=== PATIENT | female | born 1995 | race Caucasian/White ===

== ENCOUNTER 2017-11-25 17:23 | Emergency (ER) | payer BC, OTHER ==
[~2017-11-25] VITALS: Ht 157.5 cm; Wt 74.8 kg
[~2017-11-25 17:23] MED LIST: OMEP40CA PO; SERT-234 PO
[2017-11-25 17:40] VITALS: TEMP 36.6; Ht 157.5 cm; Wt 74.8 kg
[2017-11-25] MEDS ORDERED: LAMO1TAB21 PO (18:38)
[2017-11-25] MEDS ORDERED: LMC25 PO (18:38)
[2017-11-25] MEDS ORDERED: ZLF/100 PO (18:38)
[2017-11-25] MEDS ORDERED: ATR25 PO (18:38)
[2017-11-25] MEDS ORDERED: ALBUTEROL HFA 8 GM INHALER INH ONE (18:45)
[2017-11-25 19:33] LABS: INFLUENZA B ANTIGEN Neg for Influ B (NEG)
--- NOTE | 2017-11-25 19:45 | DIAGNOSTIC IMAGING REPORT ---
CHEST 2 VIEWS ROUTINE HISTORY: Coughing. COMPARISON: Chest 05/24/2013. FINDINGS: The lungs are clear. Cardiac silhouette is normal in size. No pleural effusions. No pneumothorax. IMPRESSION: No acute process. Electronically signed by: Tam Bhandari M.D. 11/25/2017 7:44 PM Dictated Date/Time: 11/25/2017 7:41 PM
[2017-11-25 20:10] VITALS: BP 112/70; PULSE 80; O2SAT 100
[2017-11-25] MEDS ORDERED: BCPILLS PO (22:09)
--- NOTE | 2017-11-26 00:01 | EMERGENCY ROOM VISIT NOTE ---
History Report prepared by Neo: Eric Britt Under the Supervision of: Dr. Hieu Donaldson M.D. First contact with patient: 18:30 Chief Complaint: COUGH Stated Complaint: COUGHING,PAIN,FEVER History of Present Illness The patient is a 22 year old female who presents to the Emergency Room with complaints of constant flu-like symptoms since November 23, 2017. She states that she has been coughing to the point of dry heaving, though has not vomited. She reports congestion and coughing up yellow mucus. She notes a fever of 101 yesterday. She reports body aches and has taken Ibuprofen. She currently rates her pain a 6/10 in severity. She notes mild shortness of breath. Source of History: patient Onset: November 23, 2017 Position: other (global) Symptom Intensity: 6/10 Quality: other (flu-like symptoms) Timing: constant Associated Symptoms: + fevers, + cough (with yellow mucus), + SOB (mild), No vomiting Note: She notes body aches, dry heaving, and congestion. Review of Systems See HPI for pertinent positives & negatives. A total of 10 systems reviewed and were otherwise negative. Past Medical & Surgical Medical Problems: (1) Cholecystectomy (2) chronic vomiting (3) Depression (4) Gastroesophageal reflux disease Family History Cancer Diabetes mellitus FHx: gallbladder disease Heart disease Hypertension Social History Smoking Status: Current Every Day Smoker (1/2 pack a day) Alcohol Use: none Drug Use: heroin Marital Status: single Housing Status: lives with family Occupation Status: student Current/Historical Medications Scheduled Control Pills ( Control Pills), 1 TAB PO HS Lamotrigine (Lamotrigine), 75 MG PO HS Lamotrigine (Lamotrigine), 100 MG PO HS Sertraline HCl (Sertraline HCl), 200 MG PO HS Scheduled PRN Hydroxyzine HCl (Hydroxyzine HCl), 25 MG PO BID PRN for Anxiety Allergies Coded Allergies: No Known Allergies (Unverified , NONE, 11/21/15) Physical Exam Vital Signs Date Time Temp Pulse Resp B/P (MAP) Pulse Ox O2 Delivery O2 Flow Rate FiO2 11/25/17 20:10 80 18 112/70 100 11/25/17 18:59 98 Room Air 11/25/17 18:58 72 18 112/56 98 Room Air 11/25/17 17:40 36.6 111 18 104/76 100 Room Air Physical Exam Constitutional: Vital signs reviewed. Eyes: Pupils are equal round reactive to light. Conjunctiva are noninjected. ENT: Pharynx is clear without erythema or exudate. Mucous membranes are moist. Neck supple without meningeal signs. Respiratory: Clear to auscultation bilaterally. Breath sounds are equal bilaterally. Cardiovascular: Regular rate and rhythm. No rubs or gallops. GI: Soft, nondistended and nontender. Bowel sounds are present. Musculoskeletal: No peripheral edema. No lower extremity tenderness. Integumentary: No cyanosis. Neurological: The patient is awake and alert. No focal deficits. Psychiatric: Normal affect. Medical Decision & Procedures ER Provider Diagnostic Interpretation: Radiology results as stated below per my review and the radiologist's interpretation: CHEST 2 VIEWS ROUTINE HISTORY: Coughing. COMPARISON: Chest 05/24/2013. FINDINGS: The lungs are clear. Cardiac silhouette is normal in size. No pleural effusions. No pneumothorax. IMPRESSION: No acute process. Electronically signed by: Tam Bhandari M.D. 11/25/2017 7:44 PM Dictated Date/Time: 11/25/2017 7:41 PM Laboratory Results Test 11/25/17 18:33 11/25/17 19:00 Bedside Urine Test NEG (NEG) Influenza Type A Antigen POS for Influ A (NEG) Influenza Type B Antigen Neg for Influ B (NEG) Laboratory results as reviewed by me. Medications Administered Medications (Trade) Dose Ordered Sig/Aide Route Start Time Stop Time Status Last Admin Dose Admin Albuterol (Ventolin Hfa Inhaler) 2 puffs NOW ONCE INH 11/25/17 18:45 11/25/17 18:46 DC 11/25/17 19:01 2 PUFFS ED Course 1838: The patient was evaluated in room B3B. A complete history and physical exam was performed. 184: Ordered Albuterol 2 puffs INH 1950: I reassessed the patient at this time. She is feeling better and resting comfortably. I discussed the results, risks and benefits of Tamiflu with the patient. She declined treatment. I answered all pertaining questions that she had. She expressed understanding and verbalized agreement. The patient will be discharged home. Medical Decision This is a 22-year-old female presents with flulike symptoms. Differential diagnosis: Includes influenza, pneumonia, bronchitis, URI. I did perform a limited focused review of portions of the patient's old chart on the electronic medical record. The patient has had no recent pertinent visits to this hospital. I did evaluate the patient as noted above. Urine present test is negative. I did order and personally review the patient's chest x-ray as described above. There is no evidence of pneumonia. I did order a rapid flu test was positive for influenza A. I did discuss the test results with the patient. She was advised follow with her doctor. She was given return instructions as outlined below and discharged in good condition. Medication Reconcilliation Current Medication List: was personally reviewed by me Blood Pressure Screening Patient's blood pressure: Normal blood pressure Impression Primary Impression: Influenza A Scribe Attestation The scribe's documentation has been prepared under my direct and personally reviewed by me in its entirety. I confirm that the note above accurately reflects all work, treatment, procedures, and medical decision making performed by me. Departure Information Dispostion Home / Self-Care Referrals Koby Aguirre M.D. (MEDICAL) (PCP) Forms HOME CARE DOCUMENTATION FORM, IMPORTANT VISIT INFORMATION, School Instructions Patient Instructions ED Flu, My [facility] Additional Instructions You have been examined and treated today on an emergency basis only. This is not a substitute for, or an effort to provide, complete comprehensive medical care. It is impossible to recognize and treat all injuries or illnesses in a single emergency department visit. It is therefore important that you follow up closely with your physician. Call as soon as possible for an appointment. Return for worsening symptoms or if you develop chest pain, trouble breathing, vomiting, or any other concerning symptoms.
== END 2017-11-25 20:11 | disposition home or self-care (01) ==
LOC: C.EDB 17:23
DX: J11.1 Influenza due to unidentified influenza virus with other respiratory manifestations (principal); F32.9 Major depressive disorder, single episode, unspecified; F17.200 Nicotine dependence, unspecified, uncomplicated; Z90.49 Acquired absence of other specified parts of digestive tract; Z83.3 Family history of diabetes mellitus; Z82.49 Family history of ischemic heart disease and other diseases of the circulatory system; Z79.899 Other long term (current) drug therapy

== ENCOUNTER 2020-11-10 20:02 | Observation (INO) ==
[2020-11-10] MEDS ORDERED: ONDANSETRON INJ 2 MG/ML 2 ML VIAL IV STA (20:32)
[2020-11-10] MEDS ORDERED: SODIUM CHLORIDE 0.9% 1000ML 1,000 ML IV SCH (20:32)
--- NOTE | 2020-11-10 20:36 | Emergency Department Note ---
History of Present Illness General Chief complaint: Vomiting Stated complaint: vomit, Dehydration, Nausea Time Seen by Provider: 11/10/20 20:11 History of Present Illness Maximum Pain Intensity: 0 Patient is a 10-week 25-year-old female who presents the emergency department for evaluation of persistent nausea and vomiting. She was seen and evaluated here earlier today, and was discharged from our facility roughly 2 hours prior to her return this evening at 1999. Patient states that she felt fine when she left the emergency department. She had tolerated crackers and fluids in the ED prior to discharge. She states that she did stop and get Pepcid on her way home, and took 1 dose. She states that when she got home, she "started vomiting again." She tried taking Reglan but vomited it up. She returned to the emergency department as she was told that if her symptoms did not improve she would need to be admitted. She states that "they have been trying to admit me since Sunday." The patient has a history of GERD as a child. She is status post cholecystectomy at age 15. Remote history of an EGD. She denies any other underlying stomach problems or IBS. She has multiple antiemetics at home including Reglan, Zofran and Phenergan suppositories. She did have an ultrasound which confirmed an intrauterine on her ED visit on 11/06. She follows with [facility]. Home Medications Medication Instructions Recorded Confirmed Type omeprazole 20 mg PO DAILY 11/06/20 11/10/20 History ondansetron 4 mg PO Q8H PRN 11/06/20 11/10/20 History prenat.vits,kannan,qvd-syfr-toltz 1 tab PO DAILY 11/06/20 11/10/20 History [ #2] doxylamine-pyridoxine (vit B6) 1 tab PO Q8H 11/10/20 11/10/20 History famotidine 20 mg PO BID #20 tab 11/10/20 11/10/20 Rx metoclopramide HCl 10 mg PO Q6H PRN 11/10/20 11/10/20 History promethazine 25 mg AK Q6H PRN 11/10/20 11/10/20 History Allergies Allergy/AdvReac Type Severity Reaction Status Date / Time No Known Allergies Allergy Verified 11/10/20 20:46 Past Med/Surg History Medical History GERD (gastroesophageal reflux disease) As a child Surgical History History of cholecystectomy History of esophagogastroduodenoscopy (EGD) Family History (Updated 12/28/19 @ 16:11 by Yosvany Glasgow) Other No significant family history Social History Smoking Status: Former smoker Preferred Language: [place] Citizen current occupational status: employed and student Feels Safe at Home: Yes Review of Systems A total of 10 systems reviewed and were otherwise negative Physical Exam Vital Signs Vital Signs - 24 hr 11/10/20 20:05 11/10/20 21:20 11/10/20 21:58 Temperature 36.6 C Temperature Source Temporal Artery Scan Pulse Rate 83 Pulse Rate [Finger] 82 83 Respiratory Rate 16 18 18 Respiratory Depth Normal Blood Pressure 124/73 Blood Pressure [Right Arm] 113/69 123/78 Blood Pressure Mean 90 Blood Pressure Mean [Right Arm] 83 93 Blood Pressure Position Sitting Pulse Oximetry 96 98 98 Oxygen Delivery Method Room Air Room Air Room Air Sepsis Recent Fever Within 48 Hours No Sepsis New/Unexplained Change in Mental Status No Sepsis Action Taken by Nursing No Action Required CONSTITUTIONAL: Patient is an ill-appearing 25-year-old female who is awake and alert and in no acute distress. EYES: Pupils equal, round, reactive to light and accommodation. EOMs intact without nystagmus. Sclera are anicteric. ENT: Tympanic membranes intact, with normal landmarks. External canals are clear. Oral and nasopharynx are clear. Mucous membranes are dry, no lesions, tongue and gums appear normal. CARDIOVASCULAR: Regular rate and rhythm, with normal S1 and S2, no murmur or gallop or rub is heard. No carotid bruits auscultated. No JVD. Peripheral pulses easily palpable. RESPIRATORY: Breath sounds equal and clear to auscultation without wheezes, rales, or rhonchi heard. Full and equal chest expansion without accessory muscle use or retractions. ABDOMEN: Bowel sounds are present. Well-healed surgical scars are noted. Abdomen is soft, nondistended, mildly tender to palpation through the upper abdomen, without guarding or rebound. INTEGUMENTARY: No lesions or rash, normal skin turgor. LYMPH: No lymphadenopathy. Course Course The patient was seen and assessed as above. Old records were reviewed including her ED record from this weekend and earlier today. She returns to the emergency department for intractable nausea and vomiting in the setting of a first trimester . She is requesting admission. IV lock was initiated and repeat laboratory studies were collected. She was hy drated with normal saline solution and medicated with Zofran 4 mg IV. Consultation was placed with [facility] on-call. Patient was reviewed with Dr. Yung. He was agreeable to admission/observation. Please refer to his orders for further information. Laboratory studies in the emergency department noted a 14,000 white count. Electrolytes are without significant abnormality requiring correction. BUN 2, creatinine 0.47. Transaminases are normal. Lipase is within normal limits. A Covid test obtained for admission purposes was negative. Patient was made aware that she would be brought into the hospital by the [facility] service for further care and treatment. Administered Medications Discontinued Medications Sodium Chloride (Nss 1000ml) 1,000 mls @ 999 mls/hr IV .Q1H1M DAYANARA Stop: 11/10/20 21:32 Last Infusion: 11/10/20 21:38 Dose: 0 mls/hr Documented by: [id number] Admin: 11/10/20 20:44 Dose: 999 mls/hr Documented by: [id number] Lactated Ringer's (Lr) 500 mls @ 999 mls/hr IV .Q31M ONE Stop: 11/10/20 21:45 Last Infusion: 11/10/20 22:10 Dose: 0 mls/hr Documented by: [id number] Admin: 11/10/20 21:39 Dose: 999 mls/hr Documented by: [id number] Ondansetron HCl (Ondansetron Inj 2 Mg/Ml 2 Ml Vial) 4 mg IV NOW STA Stop: 11/10/20 20:33 Last Admin: 11/10/20 20:44 Dose: 4 mg Documented by: [id number] Medical Decision Making Differential Diagnosis Differential diagnoses entertained included first trimester nausea and vomiting, hyperemesis gravidarum, GERD, gastritis, esophagitis, peptic ulcer disease, dehydration, electrolyte or metabolic abnormality, among others. Medical Records Attestation: I reviewed the patient's medical records. Home Medications Current Medication List: was personally reviewed by me Laboratory Data Attestation: I reviewed the patient's lab results. Result diagrams: 11/10/20 20:32 11/10/20 20:39 Lab Results 11/10/20 11/10/20 11/10/20 Range/Units 20:32 20:39 21:18 WBC 14.01 H (4.8-10.8) K/uL RBC 4.30 (4.2-5.4) M/uL Hgb 12.8 (12.0-16.0) g/dL Hct 37.7 (37-47) % MCV 87.7 (80-100) fL MCH 29.8 (25-34) pg MCHC 34.0 (32-36) g/dL RDW Std Deviation 44.9 (36.4-46.3) fL RDW Coeff of Reji 14.0 (11.5-14.5) % Plt Count 258 (130-400) K/uL MPV 10.3 (7.4-10.4) fL Sodium 140 (136-145) mmol/L Potassium 3.7 (3.5-5.1) mmol/L Chloride 109 H (98-107) mmol/L Carbon Dioxide 24 (21-32) mmol/L Anion Gap 6.0 (3-11) BUN 2 L (7-18) mg/dl Creatinine 0.47 L (0.6-1.2) mg/dl Est Cr Clr Drug Dosing 166.1 ml/min Est GFR ( Amer) > 150.0 Est GFR (Non-Af Amer) 136.3 BUN/Creatinine Ratio 4.4 L (10-20) Glucose 87 (70-99) mg/dl Calcium 9.0 (8.5-10.1) mg/dl Magnesium 1.8 (1.8-2.4) mg/dl Total Bilirubin 0.6 (0.2-1) mg/dl AST 20 (15-37) U/L ALT 28 (12-78) U/L Alkaline Phosphatase 50 (45-117) U/L Total Protein 6.7 (6.4-8.2) gm/dl Albumin 3.3 L (3.4-5.0) gm/dl Globulin 3.4 (2.5-4.0) gm/dl Albumin/Globulin Ratio 1.0 (0.9-2) Lipase 365 (73-393) U/L COVID-19 Eval Order Covid19 IDNow [facility] MDM Narrative See ED course. Impression & Plan Hyperemesis gravidarum Discharge Plan Visit Data Chief Complaint: Vomiting Stated Complaint: vomit, Dehydration, Nausea ED Provider: Colton Call ED Midlevel Provider: Megha Sierra Discharge Problem: Hyperemesis gravidarum Patient Disposition: Admitted As Inpatient Forms Stand Alone Forms: [facility] Prescriptions Prescriptions: No Action omeprazole 20 mg capsule,delayed release(DR/EC) 20 mg PO DAILY RF: 0 ondansetron 4 mg tablet,disintegrating 4 mg PO Q8H PRN (Reason: Nausea) RF: 0 #2 Tablet 1 tab PO DAILY RF: 0 promethazine 25 mg suppository 25 mg AK Q6H PRN (Reason: Nausea) RF: 0 metoclopramide HCl 10 mg tablet 10 mg PO Q6H PRN (Reason: Gi Upset) RF: 0 doxylamine-pyridoxine (vit B6) 10-10 mg tablet,delayed release (DR/EC) 1 tab PO Q8H RF: 0 famotidine 20 mg tablet 20 mg PO BID Qty: 20 RF: 0 Referrals Referrals: Bo Yo MD [Primary Care Provider] -
[2020-11-10 20:51] LABS: Hematocrit (blood only) 37.7 % (37-47); Hemoglobin 12.8 g/dL (12.0-16.0); Mean Corpuscular Hemoglobin 29.8 pg (25-34); Mean Corpuscular Volume 87.7 fL (80-100); Mean Platelet Volume 10.3 fL (7.4-10.4); Platelet Count 258 K/uL (130-400); RDW Standard Deviation 44.9 fL (36.4-46.3); White Blood Count 14.01 K/uL (4.8-10.8)
[2020-11-10 21:13] LABS: Alanine Aminotransferase 28 U/L (12-78); Albumin Level 3.3 gm/dl (3.4-5.0); Aspartate Aminotransferase 20 U/L (15-37); BUN Creatinine Ratio 4.4 (10-20); Blood Urea Nitrogen 2 mg/dl (7-18); Carbon Dioxide 24 mmol/L (21-32); Chloride 109 mmol/L (98-107); Creatinine Clr Calc Pharmacy 166.1 ml/min; Est GFR (African American) > 150.0; Est GFR (Non-African American) 136.3; Glucose 87 mg/dl (70-99); Lipase 365 U/L (73-393); Magnesium 1.8 mg/dl (1.8-2.4); Potassium 3.7 mmol/L (3.5-5.1); Sodium 140 mmol/L (136-145)
[2020-11-10] MEDS ORDERED: LACTATED RINGER'S 500 ML IV ONE (21:15)
[2020-11-10 21:16] LABS: Alkaline Phosphatase 50 U/L (45-117); Bilirubin,Total 0.6 mg/dl (0.2-1); Globulin 3.4 gm/dl (2.5-4.0); Total Protein 6.7 gm/dl (6.4-8.2)
[2020-11-10] MEDS: POTASSIUM CHLORIDE 30 MEQ in LACTATED RINGER'S 1,000 ML IV SCH (22:13)
[2020-11-11] MEDS: ONDANSETRON INJ 2 MG/ML 2 ML VIAL IV PRN ×2 (04:21→10:08)
[2020-11-11] MEDS: POTASSIUM CHLORIDE 30 MEQ in LACTATED RINGER'S 1,000 ML IV SCH (05:20)
--- NOTE | 2020-11-11 07:56 | History & Physical Report ---
Date of Service November 11, 2020 Assessment & Plan (1) Hyperemesis gravidarum: 25-year-old G1, P0 at 10 wks of gestation who was admitted last night for N&V of and keton in urine VSS Afebrile Doing well No N&V since last night, desires to eat and drink Continue with clear diet and then BRAT and reevaluate Admission and Anticipated Discharge Date Admission Date: November 10, 2020 History of Present Illness Primary Care Provider: Bo Yo MD Patient is a 25-year-old G1 and 10 weeks of gestation who was admitted by Dr Yung for hyperemesis last night She was not keeping anything down and came to ER for the second time She has not had N&V since admission and wants to eat clear diet No VB/ Cramping Voided 45 ml clear urine per nursing team Per her she has not lost any weight She is know to me from office. Allergies Allergy/AdvReac Type Severity Reaction Status Date / Time No Known Allergies Allergy Verified 11/10/20 20:46 Home Medications Medication Instructions Recorded Confirmed Type omeprazole 20 mg PO DAILY 11/06/20 11/10/20 History ondansetron 4 mg PO Q8H PRN 11/06/20 11/10/20 History prenat.vits,kannan,rve-wpdy-lpszx 1 tab PO DAILY 11/06/20 11/10/20 History [ #2] doxylamine-pyridoxine (vit B6) 1 tab PO Q8H 11/10/20 11/10/20 History famotidine 20 mg PO BID #20 tab 11/10/20 11/10/20 Rx metoclopramide HCl 10 mg PO Q6H PRN 11/10/20 11/10/20 History promethazine 25 mg TN Q6H PRN 11/10/20 11/10/20 History Patient History Medical History GERD (gastroesophageal reflux disease) As a child Surgical History History of cholecystectomy History of esophagogastroduodenoscopy (EGD) Family History Other No significant family history Social History Smoking Status: Former smoker Smoking End Date: August 2020; Second Hand Exposure: No; Do You Dip or Chew Tobacco: No; Tobacco Cessation Education Requested by Patient: No Hx Alcohol Use: No Hx Substance Use: Yes Last Used Substance: Hours (ago) Substance Use Type Other:: [facility] Preferred Language: [place] Communication Ability: Effective Logistics Clerk Required: No Beliefs That Will Affect Care: None Current Living Situation: Significant Other current occupational status: employed and student Other Information That Helps Us Care for You: No Feels Safe at Home: Yes Safety Concerns: Feels Safe At This Time Assistive Devices: Contacts Review of Systems All systems reviewed & are unremarkable except as noted in HPI & below Physical Exam Constitutional: WD/WN, vitals as above well developed, well nourished and + well hydrated Results & Data ([facility]) Vital Signs (Past 12 Hours) Vital Signs Temp Pulse Pulse Pulse Resp BP BP 11/11/20 04:20 36.7 C 78 18 119/70 11/10/20 23:00 36.8 C 87 18 120/68 11/10/20 21:58 83 18 123/78 11/10/20 21:20 82 18 113/69 11/10/20 20:05 36.6 C 83 16 124/73 Pulse Ox 11/11/20 04:20 98 11/10/20 23:00 96 11/10/20 21:58 98 11/10/20 21:20 98 11/10/20 20:05 96 Laboratory Results Lab Results 11/10/20 11/10/20 11/10/20 Range/Units 20:32 20:39 21:18 WBC 14.01 H (4.8-10.8) K/uL RBC 4.30 (4.2-5.4) M/uL Hgb 12.8 (12.0-16.0) g/dL Hct 37.7 (37-47) % MCV 87.7 (80-100) fL MCH 29.8 (25-34) pg MCHC 34.0 (32-36) g/dL RDW Std Deviation 44.9 (36.4-46.3) fL RDW Coeff of Reji 14.0 (11.5-14.5) % Plt Count 258 (130-400) K/uL MPV 10.3 (7.4-10.4) fL Sodium 140 (136-145) mmol/L Potassium 3.7 (3.5-5.1) mmol/L Chloride 109 H (98-107) mmol/L Carbon Dioxide 24 (21-32) mmol/L Anion Gap 6.0 (3-11) BUN 2 L (7-18) mg/dl Creatinine 0.47 L (0.6-1.2) mg/dl Est Cr Clr Drug Dosing 166.1 ml/min Est GFR ( Amer) > 150.0 Est GFR (Non-Af Amer) 136.3 BUN/Creatinine Ratio 4.4 L (10-20) Glucose 87 (70-99) mg/dl Calcium 9.0 (8.5-10.1) mg/dl Magnesium 1.8 (1.8-2.4) mg/dl Total Bilirubin 0.6 (0.2-1) mg/dl AST 20 (15-37) U/L ALT 28 (12-78) U/L Alkaline Phosphatase 50 (45-117) U/L Total Protein 6.7 (6.4-8.2) gm/dl Albumin 3.3 L (3.4-5.0) gm/dl Globulin 3.4 (2.5-4.0) gm/dl Albumin/Globulin Ratio 1.0 (0.9-2) Lipase 365 (73-393) U/L COVID-19 Eval Order Covid19 IDNow [facility] SARS-CoV-2, RNA, NAAT (NEGATIVE) 11/10/20 Range/Units 21:18 WBC (4.8-10.8) K/uL RBC (4.2-5.4) M/uL Hgb (12.0-16.0) g/dL Hct (37-47) % MCV (80-100) fL MCH (25-34) pg MCHC (32-36) g/dL RDW Std Deviation (36.4-46.3) fL RDW Coeff of Reji (11.5-14.5) % Plt Count (130-400) K/uL MPV (7.4-10.4) fL Sodium (136-145) mmol/L Potassium (3.5-5.1) mmol/L Chloride (98-107) mmol/L Carbon Dioxide (21-32) mmol/L Anion Gap (3-11) BUN (7-18) mg/dl Creatinine (0.6-1.2) mg/dl Est Cr Clr Drug Dosing ml/min Est GFR ( Amer) Est GFR (Non-Af Amer) BUN/Creatinine Ratio (10-20) Glucose (70-99) mg/dl Calcium (8.5-10.1) mg/dl Magnesium (1.8-2.4) mg/dl Total Bilirubin (0.2-1) mg/dl AST (15-37) U/L ALT (12-78) U/L Alkaline Phosphatase (45-117) U/L Total Protein (6.4-8.2) gm/dl Albumin (3.4-5.0) gm/dl Globulin (2.5-4.0) gm/dl Albumin/Globulin Ratio (0.9-2) Lipase (73-393) U/L COVID-19 Eval Order SARS-CoV-2, RNA, NAAT NEGATIVE (NEGATIVE)
[2020-11-11] MEDS ORDERED: METOCLOPRAMIDE HCL INJ 5 MG/ML 2 ML VIAL IV PRN (07:59)
--- NOTE | 2020-11-11 14:35 | Obstetrical Progress Note ---
Date of Service November 11, 2020 Assessment & Plan Admission and Anticipated Discharge Date Admission Date: November 10, 2020 Subjective Patient is reevaluated She feels better and wants to be discharged No vomiting since admission She ate lunch and kept it down Discussed US results: small DAYANARA, recommended f/u US in 2 weeks She desires Rx for Zofran only. All questions were answered Results & Data ([facility]) Vital Signs (Past 12 Hours) Vital Signs Temp Pulse Resp BP Pulse Ox 11/11/20 07:35 36.7 C 76 18 114/72 100 11/11/20 04:20 36.7 C 78 18 119/70 98
== END 2020-11-11 15:00 | disposition home or self-care (01) ==
LOC: ED 20:02 → 4S2 20:02

== ENCOUNTER 2020-12-13 05:52 | Observation (INO) ==
[2020-12-13 06:29] LABS: Basophils # (auto) 0.02 K/uL (0-0.2); Basophils % (auto) 0.1 %; Eosinophils # (auto) 0.03 K/uL (0-0.5); Eosinophils % (auto) 0.2 %; Hemoglobin 13.1 g/dL (12.0-16.0); Immature Granulocytes # (auto) 0.04 K/uL (0.00-0.02); Immature Granulocytes % (auto) 0.3 %; Lymphocytes # (auto) 2.46 K/uL (1.2-3.4); Lymphocytes % (auto) 16.7 %; Mean Corpuscular Hemoglobin 30.2 pg (25-34); Mean Corpuscular Hgb Conc 35.4 g/dL (32-36); Mean Corpuscular Volume 85.3 fL (80-100); Mean Platelet Volume 10.6 fL (7.4-10.4); Monocytes # (auto) 0.87 K/uL (0.11-0.59); Monocytes % (auto) 5.9 %; Neutrophils # (auto) 11.29 K/uL (1.4-6.5); Neutrophils % (auto) 76.8 %; Platelet Count 307 K/uL (130-400); RDW Coefficient of Variation 13.7 % (11.5-14.5); RDW Standard Deviation 42.8 fL (36.4-46.3); Red Blood Count 4.34 M/uL (4.2-5.4); White Blood Count 14.71 K/uL (4.8-10.8)
[2020-12-13] MEDS ORDERED: diphenhydrAMINE 50 MG/ML VIAL IV STA ×2 (06:39→13:06)
[2020-12-13] MEDS ORDERED: CAPSAICIN CR 0.075% 60 GM TUBE EXT STA (06:39)
[2020-12-13] MEDS ORDERED: METOCLOPRAMIDE HCL INJ 5 MG/ML 2 ML VIAL IV STA (06:39)
[2020-12-13] MEDS ORDERED: D5W AND NSS 1,000 ML IV STA ×2 (06:40→09:42)
[2020-12-13] MEDS ORDERED: FAMOTIDINE 20MG IV PUSH 20 MG/5 ML SYR IV STA (06:41)
[2020-12-13 06:46] LABS: Albumin Level 3.3 gm/dl (3.4-5.0); BUN Creatinine Ratio 7.8 (10-20); Calcium 8.9 mg/dl (8.5-10.1); Creatinine Clr Calc Pharmacy 127.6 ml/min; Est GFR (African American) 144.2; Est GFR (Non-African American) 124.4; Potassium 3.2 mmol/L (3.5-5.1)
[2020-12-13 06:48] LABS: Albumin Globulin Ratio 0.9 (0.9-2); Bilirubin,Total 0.7 mg/dl (0.2-1); Globulin 3.8 gm/dl (2.5-4.0); Total Protein 7.1 gm/dl (6.4-8.2)
--- NOTE | 2020-12-13 07:28 | Emergency Department Note ---
Impression & Plan Metabolic acidosis, Hyperemesis affecting , antepartum, Acute dehydration, Cannabis hyperemesis syndrome concurrent with and due to cannabis dependence ED Provider Note NAME: ISAURA JOSEPH AGE: 25 SEX: F ARRIVES VIA: Walk-In INFORMANT: Patient, ED PROVIDER(S): Leighton Lucero MD CHIEF COMPLAINT: Nausea/vomiting PLAN: Disposition: Admit MEDICAL DECISION MAKING: The patient is a pleasant 25-year-old woman, G1, P0 at 16 weeks past medical history acid reflux, regular medical marijuana use who presents to the emergency department with persistent nausea vomiting and epigastric abdominal pain since yesterday in the setting of having numerous emergency department visits for the same throughout this . On prior visits there was noted to be stable subchorionic hemorrhage on ultrasound. Today she denies any vaginal bleeding, cramping, discharge. She denies any fevers, chills, cough, congestion, diarrhea, urinary symptoms. She denies any known COVID-19 exposures. Of note on previous ED visit she was given capsaicin cream but she appeared to not know what this was and did not use this. Patient last ED visit was 11/27 and since then she reports she has been doing okay but had recurrence of her symptoms yesterday. On arrival she is uncomfortable no acute distress, afebrile stable vital signs. She has mild epigastric discomfort without discrete tenderness. She appears clinically dry. WBC 14.7, nonspecific and similar to prior range of values and in the setting of the patient's current and cyclic vomiting. H/H and platelets within normal limits. Chemistry with mild metabolic acidosis with bicarbonate of 17 though with no significant anion gap elevation. Potassium 3.2 with repletion provided. Electrolytes and LFTs otherwise without significant abnormality. Lipase is marginally elevated at 439 and nonspecific. The patient initially had some improvement with initial treatment including IVF hydration with D5NSS, topical capsaicin, diphenhydramine, Reglan, famotidine. However symptoms did recur and so she was additionally treated with Phenergan and GI cocktail. She again reports some improvement and even requested Jell-O however before she was able to even attempt this she had a recurrence of her cyclical vomiting. On reevaluation the patient continued with generalized abdominal discomfort but no discrete tenderness. A limited bedside abdominal ultrasound was performed and did not demonstrate any overt free fluid. The patient's known IUP was appreciated with HR appreciated. Given the patient's persistence of symptoms after repeated treatment we did consider alternate etiology including appendicitis. However given no discrete tenderness will defer imaging at this time. However given her refractory symptoms it is reasonable to admit the patient for further management and monitoring. Patient was agreeable with this. I did discuss the patient's case with Tasneem HUYNH on-call, Dr. Ward, who is familiar with the patient from her last admission. She agrees to evaluate the patient and admit for further management. Of note, and then met in the interim the patient did request her nurse to reapply the capsaicin ointment as she reported improvement initially and ointment may have been wiped off by her pants. Triage Nursing notes reviewed and agree them. Prior medical records reviewed Vital Signs: reviewed and remarkable for no significant abnormalities Differential diagnosis: Gastroenteritis, food borne illness, infections, appendicitis, diverticulitis, inflammatory bowel disease, obstruction, GI bleed, biliary pathology, volvulus, as well as other pathologies. ER treatment provided: See below. Diagnostics interpreted by me: Cardiac Monitoring: An order for continuous cardiac monitoring was placed and demonstrated NSR, 89 bpm, no ectopy Laboratory studies: See below Consultation(s): Tasneem HUYNH on-call, Dr. Ward, HPI: The patient is a pleasant 25-year-old woman, G1, P0 at 16 weeks past medical history acid reflux, regular marijuana use who presents emerge department with persistent nausea vomiting and epigastric abdominal pain since yesterday in the setting of having numerous emergency department visits for the same throughout this . On prior visits there was noted to be stable subchorionic hemorrhage on ultrasound. Today she denies any vaginal bleeding, cramping, discharge. Any fevers, chills, cough, congestion, diarrhea, urinary symptoms. She denies any known COVID-19 exposures. Of note on previous ED visit she was given capsaicin cream but she appeared to not know what this was and did not use this. ROS: See above HPI for pertinent positives & negatives. A total of 10 systems reviewed and were otherwise negative. PAST MEDICAL HISTORY:See Below PAST SURGICAL HISTORY:See Below FAMILY HISTORY:See Below SOCIAL HISTORY:See Below HOME MEDICATIONS:See Below ALLERGIES:See Below VITALS:See Below PHYSICAL EXAMINATION: GENERAL: Awake, alert, fatigued/uncomfortable-appearing, in no distress HENT: Normocephalic, atraumatic. Oropharynx with dry mucous membranes and otherwise unremarkable. EYES: Normal conjunctiva. Sclera non-icteric. NECK: Supple. No nuchal rigidity. FROM. No JVD. RESPIRATORY: Clear to auscultation. CARDIAC: Regular rate, normal rhythm. Extremities warm and well perfused. Pulses equal. ABDOMEN: Soft, non-distended. Mild epigastric discomfort without discrete tenderness to palpation. No rebound or guarding. No masses. RECTAL: Deferred. MUSCULOSKELETAL: Chest examination reveals no tenderness. The back is symmetrica l on inspection without obvious abnormality. There is no CVA tenderness to palpation. No joint edema. LOWER EXTREMITIES: Calves are equal size bilaterally and non-tender. No edema. No discoloration. NEURO: Normal sensorium. No sensory or motor deficits noted. SKIN: No rash or jaundice noted. Leighton Lucero MD Past Med/Surg History Medical History Cannabis hyperemesis syndrome concurrent with and due to cannabis dependence GERD (gastroesophageal reflux disease) As a child Hyperemesis affecting , antepartum Marijuana use Surgical History History of cholecystectomy History of esophagogastroduodenoscopy (EGD) Family History Other No significant family history Social History Smoking Status: Never smoker Second Hand Exposure: No; Hx Alcohol Use: No Hx Substance Use: Yes Last Used Substance: Hours (ago) Substance Use Type Other:: [facility] Preferred Language: Turkish Communication Ability: Effective Leaf Conditioner Required: No Beliefs That Will Affect Care: None Current Living Situation: Significant Other current occupational status: employed and student Feels Safe at Home: Yes Assistive Devices: None Allergies Allergies Allergy/AdvReac Type Severity Reaction Status Date / Time No Known Allergies Allergy Verified 12/13/20 06:03 Home Meds Home Medications Medication Instructions Recorded Confirmed omeprazole 20 mg PO DAILY 11/06/20 12/13/20 prenat.vits,kannan,odi-ksjv-csrlm 1 tab PO DAILY 11/06/20 12/13/20 doxylamine-pyridoxine (vit B6) 1 tab PO Q8H 11/10/20 12/13/20 metoclopramide HCl 10 mg PO Q6H PRN 11/10/20 12/13/20 promethazine 25 mg ME Q6H PRN 11/10/20 12/13/20 Previous Rx's Medication Instructions Recorded famotidine 20 mg PO BID #20 tab 11/10/20 ondansetron 4 mg PO Q4 PRN #30 tab 11/11/20 Results & Data (ED) Vital Signs Vital Signs - 24 hr 12/13/20 05:58 12/13/20 08:44 12/13/20 10:01 Temperature 36.3 C L Temperature Source Temporal Artery Scan Pulse Rate 98 H Pulse Rate [Right Finger] 88 77 Pulse Rhythm Regular Pulse Rhythm [Right Finger] Regular Regular Pulse Strength Normal Pulse Strength [Right Finger] Normal Normal Respiratory Rate 20 18 18 Respiratory Effort / Characteristics Non-Labored Spontaneous Non-Labored Spontaneous Non-Labored Spontaneous Respiratory Depth Normal Normal Normal Respiratory Pattern Regular Regular Blood Pressure 134/86 Blood Pressure [Right Arm] 121/66 85/45 L Blood Pressure Mean 102 Blood Pressure Mean [Right Arm] 84 58 Blood Pressure Position Sitting Blood Pressure Position [Right Arm] Sitting Lying Pulse Oximetry 97 99 97 Oxygen Delivery Method Room Air Room Air Room Air Sepsis Recent Fever Within 48 Hours No Sepsis New/Unexplained Change in Mental Status N/A Sepsis Action Taken by Nursing No Action Required 12/13/20 10:31 12/13/20 11:02 12/13/20 11:39 Temperature Temperature Source Pulse Rate Pulse Rate [Right Finger] 80 96 H 118 H Pulse Rhythm Pulse Rhythm [Right Finger] Regular Regular Regular Pulse Strength Pulse Strength [Right Finger] Normal Normal Normal Respiratory Rate 18 18 18 Respiratory Effort / Characteristics Non-Labored Spontaneous Non-Labored Spontaneous Non-Labored Spontaneous Respiratory Depth Normal Normal Normal Respiratory Pattern Regular Regular Regular Blood Pressure Blood Pressure [Right Arm] 91/48 L 101/66 111/80 Blood Pressure Mean Blood Pressure Mean [Right Arm] 62 77 90 Blood Pressure Position Blood Pressure Position [Right Arm] Lying Lying Sitting Pulse Oximetry 96 98 99 Oxygen Delivery Method Room Air Room Air Room Air Sepsis Recent Fever Within 48 Hours Sepsis New/Unexplained Change in Mental Status Sepsis Action Taken by Nursing 12/13/20 13:00 Temperature Temperature Source Pulse Rate Pulse Rate [Right Finger] 89 Pulse Rhythm Pulse Rhythm [Right Finger] Regular Pulse Strength Pulse Strength [Right Finger] Normal Respiratory Rate 18 Respiratory Effort / Characteristics Non-Labored Spontaneous Respiratory Depth Normal Respiratory Pattern Regular Blood Pressure Blood Pressure [Right Arm] 123/86 Blood Pressure Mean Blood Pressure Mean [Right Arm] 98 Blood Pressure Position Blood Pressure Position [Right Arm] Sitting Pulse Oximetry 99 Oxygen Delivery Method Room Air Sepsis Recent Fever Within 48 Hours Sepsis New/Unexplained Change in Mental Status Sepsis Action Taken by Nursing Laboratory Data Attestation: I reviewed the patient's lab results. Result diagrams: 12/13/20 06:10 12/13/20 06:10 Lab Results 12/13/20 12/13/20 12/13/20 Range/Units 06:10 06:10 06:10 WBC 14.71 H (4.8-10.8) K/uL RBC 4.34 (4.2-5.4) M/uL Hgb 13.1 (12.0-16.0) g/dL Hct 37.0 (37-47) % MCV 85.3 (80-100) fL MCH 30.2 (25-34) pg MCHC 35.4 (32-36) g/dL RDW Std Deviation 42.8 (36.4-46.3) fL RDW Coeff of Reji 13.7 (11.5-14.5) % Plt Count 307 (130-400) K/uL MPV 10.6 H (7.4-10.4) fL Immature Gran % (Auto) 0.3 % Neut % (Auto) 76.8 % Lymph % (Auto) 16.7 % Finney % (Auto) 5.9 % Eos % (Auto) 0.2 % Baso % (Auto) 0.1 % Neut # (Auto) 11.29 H (1.4-6.5) K/uL Lymph # (Auto) 2.46 (1.2-3.4) K/uL Finney # (Auto) 0.87 H (0.11-0.59) K/uL Eos # (Auto) 0.03 (0-0.5) K/uL Baso # (Auto) 0.02 (0-0.2) K/uL Immature Gran # (Auto) 0.04 H (0.00-0.02) K/uL Sodium 139 (136-145) mmol/L Potassium 3.2 L (3.5-5.1) mmol/L Chloride 110 H (98-107) mmol/L Carbon Dioxide 17 L (21-32) mmol/L Anion Gap 12.0 H (3-11) BUN 5 L (7-18) mg/dl Creatinine 0.62 (0.6-1.2) mg/dl Est Cr Clr Drug Dosing 127.6 ml/min Est GFR ( Amer) 144.2 Est GFR (Non-Af Amer) 124.4 BUN/Creatinine Ratio 7.8 L (10-20) Glucose 107 H (70-99) mg/dl Calcium 8.9 (8.5-10.1) mg/dl Phosphorus (2.5-4.9) mg/dl Magnesium (1.8-2.4) mg/dl Total Bilirubin 0.7 (0.2-1) mg/dl Direct Bilirubin 0.1 (0-0.2) mg/dl AST 18 (15-37) U/L ALT 20 (12-78) U/L Alkaline Phosphatase 54 (45-117) U/L Total Protein 7.1 (6.4-8.2) gm/dl Albumin 3.3 L (3.4-5.0) gm/dl Globulin 3.8 (2.5-4.0) gm/dl Albumin/Globulin Ratio 0.9 (0.9-2) Lipase 439 H (73-393) U/L COVID-19 Eval Order SARS-CoV-2, RNA, NAAT (NEGATIVE) 12/13/20 12/13/20 12/13/20 Range/Units 06:10 13:28 13:28 WBC (4.8-10.8) K/uL RBC (4.2-5.4) M/uL Hgb (12.0-16.0) g/dL Hct (37-47) % MCV (80-100) fL MCH (25-34) pg MCHC (32-36) g/dL RDW Std Deviation (36.4-46.3) fL RDW Coeff of Reji (11.5-14.5) % Plt Count (130-400) K/uL MPV (7.4-10.4) fL Immature Gran % (Auto) % Neut % (Auto) % Lymph % (Auto) % Finney % (Auto) % Eos % (Auto) % Baso % (Auto) % Neut # (Auto) (1.4-6.5) K/uL Lymph # (Auto) (1.2-3.4) K/uL Finney # (Auto) (0.11-0.59) K/uL Eos # (Auto) (0-0.5) K/uL Baso # (Auto) (0-0.2) K/uL Immature Gran # (Auto) (0.00-0.02) K/uL Sodium (136-145) mmol/L Potassium (3.5-5.1) mmol/L Chloride (98-107) mmol/L Carbon Dioxide (21-32) mmol/L Anion Gap (3-11) BUN (7-18) mg/dl Creatinine (0.6-1.2) mg/dl Est Cr Clr Drug Dosing ml/min Est GFR ( Amer) Est GFR (Non-Af Amer) BUN/Creatinine Ratio (10-20) Glucose (70-99) mg/dl Calcium (8.5-10.1) mg/dl Phosphorus 2.7 (2.5-4.9) mg/dl Magnesium 1.9 (1.8-2.4) mg/dl Total Bilirubin (0.2-1) mg/dl Direct Bilirubin (0-0.2) mg/dl AST (15-37) U/L ALT (12-78) U/L Alkaline Phosphatase (45-117) U/L Total Protein (6.4-8.2) gm/dl Albumin (3.4-5.0) gm/dl Globulin (2.5-4.0) gm/dl Albumin/Globulin Ratio (0.9-2) Lipase (73-393) U/L COVID-19 Eval Order Covid19 [facility] SARS-CoV-2, RNA, NAAT NEGATIVE (NEGATIVE) Administered Medications Potassium Chloride (K Gera / Wtr) 10 meq in 100 mls @ 100 mls/hr IV Q1H DAYANARA Stop: 12/13/20 15:14 Last Admin: 12/13/20 13:19 Dose: 100 mls/hr Documented by: [id number] Sodium Chloride (Nss 1000ml) 1,000 mls @ 125 mls/hr IV .Q8H DAYANARA Stop: 01/12/21 13:14 Last Admin: 02/15/21 13:19 Dose: 125 mls/hr Documented by: [id number] Discontinued Medications Al Hydrox/Mg Hydrox/Simethicone (Gi Cocktail Ed Use) 1 dose PO ONE ONE Stop: 12/13/20 11:01 Last Admin: 12/13/20 11:29 Dose: 1 dose Documented by: [id number] Capsaicin (Capsaicin Cr 0.075% 60 Gm Tube) 1 appln EXT NOW STA Stop: 12/13/20 06:40 Last Admin: 12/13/20 06:48 Dose: 1 appln Documented by: [id number] Diphenhydramine HCl (Diphenhydramine 50 Mg/Ml Vial) 25 mg IV NOW STA Stop: 12/13/20 06:40 Last Admin: 12/13/20 06:48 Dose: 25 mg Documented by: [id number] Diphenhydramine HCl (Diphenhydramine 50 Mg/Ml Vial) 25 mg IV NOW STA Stop: 12/13/20 13:07 Last Admin: 12/13/20 13:18 Dose: 25 mg Documented by: [id number] Dextrose/Sodium Chloride (D5w And Nss) 1,000 mls @ 999 mls/hr IV .Q1H1M STA Stop: 12/13/20 07:40 Last Infusion: 12/13/20 07:48 Dose: 0 mls/hr Documented by: [id number] Admin: 12/13/20 06:48 Dose: 999 mls/hr Documented by: [id number] Famotidine (Pepcid 20mg Iv Push) 20 mg in 5 mls @ 2.5 mls/min IV NOW STA Stop: 12/13/20 06:42 Last Admin: 12/13/20 06:48 Dose: 2.5 mls/min Documented by: [id number] Potassium Chloride (K Gera / Wtr) 10 meq in 100 mls @ 100 mls/hr IV Q1H DAYANARA Stop: 12/13/20 11:29 Last Infusion: 12/13/20 12:27 Dose: 0 mls/hr Documented by: [id number] Admin: 12/13/20 11:27 Dose: 100 mls/hr Documented by: [id number] Infusion: 12/13/20 11:00 Dose: 100 mls/hr Documented by: [id number] Admin: 12/13/20 10:00 Dose: 100 mls/hr Documented by: [id number] Dextrose/Sodium Chloride (D5w And Nss) 1,000 mls @ 999 mls/hr IV .Q1H1M STA Stop: 12/13/20 10:42 Last Infusion: 12/13/20 12:45 Dose: 0 mls/hr Documented by: [id number] Admin: 12/13/20 10:00 Dose: 999 mls/hr Documented by: [id number] Promethazine HCl (Phenergan) 25 mg in 51 mls @ 204 mls/hr IV NOW STA Stop: 12/13/20 09:56 Last Infusion: 12/13/20 10:15 Dose: 0 mls/hr Documented by: [id number] Admin: 12/13/20 10:00 Dose: 204 mls/hr Documented by: [id number] Metoclopramide HCl (Metoclopramide Hcl Inj 5 Mg/Ml 2 Ml Vial) 10 mg IV NOW STA Stop: 12/13/20 06:40 Last Admin: 12/13/20 06:48 Dose: 10 mg Documented by: [id number] Ondansetron HCl (Ondansetron Inj 2 Mg/Ml 2 Ml Vial) Confirm Administered Dose 4 mg .ROUTE .STK-MED ONE Stop: 12/13/20 12:40 Last Admin: 12/13/20 12:40 Dose: 4 mg Documented by: [id number] Ondansetron HCl (Ondansetron Inj 2 Mg/Ml 2 Ml Vial) 4 mg IV NOW STA Stop: 12/13/20 12:45 Last Admin: 12/13/20 12:46 Dose: Not Given Documented by: [id number] Sucralfate (Sucralfate 1 Gm/10 Ml Udc) 1 gm PO NOW STA Stop: 12/13/20 13:07 Last Admin: 12/13/20 13:18 Dose: 1 gm Documented by: [id number] Discharge Plan Visit Data Chief Complaint: Vomiting Stated Complaint: VOMITING-UNABLE TO KEEP ANYTHING DOWN 24HR ED Provider: Leighton Lucero Discharge Problem: Metabolic acidosis, Hyperemesis affecting , antepartum, Acute dehydration, Cannabis hyperemesis syndrome concurrent with and due to cannabis dependence Forms Stand Alone Forms: [facility] Prescriptions Prescriptions: No Action omeprazole 20 mg capsule,delayed release(DR/EC) 20 mg PO DAILY RF: 0 prenat.vits,kannan,oow-ddzq-jzrrw Tablet 1 tab PO DAILY RF: 0 promethazine 25 mg suppository 25 mg ME Q6H PRN (Reason: Nausea) RF: 0 metoclopramide HCl 10 mg tablet 10 mg PO Q6H PRN (Reason: Gi Upset) RF: 0 doxylamine-pyridoxine (vit B6) 10-10 mg tablet,delayed release (DR/EC) 1 tab PO Q8H RF: 0 ondansetron 4 mg tablet,disintegrating 4 mg PO Q4 PRN (Reason: Nausea) Qty: 30 RF: 1 famotidine 20 mg tablet 20 mg PO BID Qty: 20 RF: 0
[2020-12-13] MEDS ORDERED: PROMETHAZINE 25 MG/51 ML BAG IV STA (09:42)
[2020-12-13 09:43] LABS: Magnesium 1.9 mg/dl (1.8-2.4); Phosphorus 2.7 mg/dl (2.5-4.9)
[2020-12-13] MEDS: POTASSIUM CHLORIDE / WTR 10 MEQ/100 ML PLCT IV SCH ×4 (10:00→16:21)
[2020-12-13] MEDS ORDERED: GI COCKTAIL ED USE PO ONE (11:00)
[2020-12-13] MEDS ORDERED: ONDANSETRON INJ 2 MG/ML 2 ML VIAL ONE (12:39)
[2020-12-13] MEDS ORDERED: ONDANSETRON INJ 2 MG/ML 2 ML VIAL IV STA (12:44)
[2020-12-13] MEDS ORDERED: SUCRALFATE 1 GM/10 ML UDC PO STA (13:06)
[2020-12-13] MEDS ORDERED: ACETAMINOPHEN 325 MG TAB PO PRN (13:10)
[2020-12-13] MEDS ORDERED: MAGNESIUM HYDROXIDE SUSP 30 ML UDC PO PRN (13:10)
[2020-12-13] MEDS ORDERED: SODIUM CHLORIDE 0.9% 1000ML 1,000 ML IV SCH (13:15)
[2020-12-13] MEDS ORDERED: PROMETHAZINE HCL 12.5 MG in SODIUM CHLORIDE 0.9% 50 ML IV PRN (13:16)
--- NOTE | 2020-12-13 14:13 | History & Physical Report ---
Date of Service December 13, 2020 Assessment & Plan (1) Hyperemesis affecting , antepartum: Patient is a 35-year-old G1, P0 at 16 weeks of gestation with hyperemesis gravidarum, Persistent nausea vomiting Since yesterday morning, medical marijuana use Vital signs stable afebrile Low potassium, elevated anion gap, urine ketones pending Plan to admit, monitor, IV fluids and antiemetics, OB ultrasound for heart rate and follow-up for subchorionic hemorrhage Patient agrees with plan, all questions were answered and anticipate discharge tomorrow. (2) Marijuana use: History of Present Illness Primary Care Provider: Bo Yo MD Patient is a 25-year-old G1, P0 at 16 weeks of gestation who is presenting to emergency room with persistent nausea vomiting since yesterday morning 5 AM. Her has been complicated by Hyperemesis gravidarum for which she presented to the ER multiple times and admitted in October by myself for IV fluid hydration and antiemetics. Patient states she has been doing better for the last few weeks when she was vomiting only once a day in the morning and then she could eat during the day. But yesterday morning she woke up with nausea vomiting and unable to keep anything down including water. She states she mostly vomited 50 times since yesterday morning. Patient complains of abdominal muscle soreness from vomiting, denies cramping, vaginal bleeding, spotting no discharge. She has history of depression, anxiety and has been on medical marijuana. She uses it about 3 times a week as a tincture. She sees a psychiatrist, Dr. Garcia who started her on Prozac about 2 weeks ago. She sees him every month. She denies suicidal nor homicidal thoughts. I was called by ER physician to admit her due to elevated anion gap and multiple admissions to the ER.Patient agrees with the plan and she wants to go home tomorrow morning if she can. Allergies Allergy/AdvReac Type Severity Reaction Status Date / Time No Known Allergies Allergy Verified 12/13/20 06:03 Home Medications Medication Instructions Recorded Confirmed Type omeprazole 20 mg PO DAILY 11/06/20 12/13/20 History prenat.vits,kannan,yit-lpmj-xipoe 1 tab PO DAILY 11/06/20 12/13/20 History doxylamine-pyridoxine (vit B6) 1 tab PO Q8H 11/10/20 12/13/20 History famotidine 20 mg PO BID #20 tab 11/10/20 12/13/20 Rx metoclopramide HCl 10 mg PO Q6H PRN 11/10/20 12/13/20 History promethazine 25 mg PA Q6H PRN 11/10/20 12/13/20 History ondansetron 4 mg PO Q4 PRN #30 tab 11/11/20 12/13/20 Rx Patient History Medical History GERD (gastroesophageal reflux disease) As a child Surgical History History of cholecystectomy History of esophagogastroduodenoscopy (EGD) Family History Other No significant family history Social History Smoking Status: Never smoker Second Hand Exposure: No; Hx Alcohol Use: No Hx Substance Use: Yes Last Used Substance: Hours (ago) Substance Use Type Other:: [facility] Preferred Language: Serbian Communication Ability: Effective Brick Layer Required: No Beliefs That Will Affect Care: None Current Living Situation: Significant Other current occupational status: employed and student Feels Safe at Home: Yes Assistive Devices: None Review of Systems All systems reviewed & are unremarkable except as noted in HPI & below Physical Exam Constitutional: WD/WN, vitals as above well developed and well nourished Seems comfortable and well hydrated. Eyes: PERRL, conjunctivae normal, anicteric sclerae ENMT: external ear and nose normal, oropharynx normal Gastrointestinal (Abdomen): normal bowel sounds, soft, nontender, no hepatosplenomegaly (No rebound) Inspection/Auscultation: abdomen normal to inspection (normal turgor of skin) Results & Data ([facility]) Vital Signs (Past 12 Hours) Vital Signs Temp Pulse Pulse Resp BP BP Pulse Ox 12/13/20 13:00 89 18 123/86 99 12/13/20 11:39 118 H 18 111/80 99 12/13/20 11:02 96 H 18 101/66 98 12/13/20 10:31 80 18 91/48 L 96 12/13/20 10:01 77 18 85/45 L 97 12/13/20 08:44 88 18 121/66 99 12/13/20 05:58 36.3 C L 98 H 20 134/86 97 Laboratory Results Lab Results 12/13/20 12/13/20 12/13/20 Range/Units 06:10 06:10 06:10 WBC 14.71 H (4.8-10.8) K/uL RBC 4.34 (4.2-5.4) M/uL Hgb 13.1 (12.0-16.0) g/dL Hct 37.0 (37-47) % MCV 85.3 (80-100) fL MCH 30.2 (25-34) pg MCHC 35.4 (32-36) g/dL RDW Std Deviation 42.8 (36.4-46.3) fL RDW Coeff of Reji 13.7 (11.5-14.5) % Plt Count 307 (130-400) K/uL MPV 10.6 H (7.4-10.4) fL Immature Gran % (Auto) 0.3 % Neut % (Auto) 76.8 % Lymph % (Auto) 16.7 % Bath % (Auto) 5.9 % Eos % (Auto) 0.2 % Baso % (Auto) 0.1 % Neut # (Auto) 11.29 H (1.4-6.5) K/uL Lymph # (Auto) 2.46 (1.2-3.4) K/uL Bath # (Auto) 0.87 H (0.11-0.59) K/uL Eos # (Auto) 0.03 (0-0.5) K/uL Baso # (Auto) 0.02 (0-0.2) K/uL Immature Gran # (Auto) 0.04 H (0.00-0.02) K/uL Sodium 139 (136-145) mmol/L Potassium 3.2 L (3.5-5.1) mmol/L Chloride 110 H (98-107) mmol/L Carbon Dioxide 17 L (21-32) mmol/L Anion Gap 12.0 H (3-11) BUN 5 L (7-18) mg/dl Creatinine 0.62 (0.6-1.2) mg/dl Est Cr Clr Drug Dosing 127.6 ml/min Est GFR ( Amer) 144.2 Est GFR (Non-Af Amer) 124.4 BUN/Creatinine Ratio 7.8 L (10-20) Glucose 107 H (70-99) mg/dl Calcium 8.9 (8.5-10.1) mg/dl Phosphorus (2.5-4.9) mg/dl Magnesium (1.8-2.4) mg/dl Total Bilirubin 0.7 (0.2-1) mg/dl Direct Bilirubin 0.1 (0-0.2) mg/dl AST 18 (15-37) U/L ALT 20 (12-78) U/L Alkaline Phosphatase 54 (45-117) U/L Total Protein 7.1 (6.4-8.2) gm/dl Albumin 3.3 L (3.4-5.0) gm/dl Globulin 3.8 (2.5-4.0) gm/dl Albumin/Globulin Ratio 0.9 (0.9-2) Lipase 439 H (73-393) U/L COVID-19 Eval Order SARS-CoV-2, RNA, NAAT (NEGATIVE) 12/13/20 12/13/20 12/13/20 Range/Units 06:10 13:28 13:28 WBC (4.8-10.8) K/uL RBC (4.2-5.4) M/uL Hgb (12.0-16.0) g/dL Hct (37-47) % MCV (80-100) fL MCH (25-34) pg MCHC (32-36) g/dL RDW Std Deviation (36.4-46.3) fL RDW Coeff of Reji (11.5-14.5) % Plt Count (130-400) K/uL MPV (7.4-10.4) fL Immature Gran % (Auto) % Neut % (Auto) % Lymph % (Auto) % Bath % (Auto) % Eos % (Auto) % Baso % (Auto) % Neut # (Auto) (1.4-6.5) K/uL Lymph # (Auto) (1.2-3.4) K/uL Bath # (Auto) (0.11-0.59) K/uL Eos # (Auto) (0-0.5) K/uL Baso # (Auto) (0-0.2) K/uL Immature Gran # (Auto) (0.00-0.02) K/uL Sodium (136-145) mmol/L Potassium (3.5-5.1) mmol/L Chloride (98-107) mmol/L Carbon Dioxide (21-32) mmol/L Anion Gap (3-11) BUN (7-18) mg/dl Creatinine (0.6-1.2) mg/dl Est Cr Clr Drug Dosing ml/min Est GFR ( Amer) Est GFR (Non-Af Amer) BUN/Creatinine Ratio (10-20) Glucose (70-99) mg/dl Calcium (8.5-10.1) mg/dl Phosphorus 2.7 (2.5-4.9) mg/dl Magnesium 1.9 (1.8-2.4) mg/dl Total Bilirubin (0.2-1) mg/dl Direct Bilirubin (0-0.2) mg/dl AST (15-37) U/L ALT (12-78) U/L Alkaline Phosphatase (45-117) U/L Total Protein (6.4-8.2) gm/dl Albumin (3.4-5.0) gm/dl Globulin (2.5-4.0) gm/dl Albumin/Globulin Ratio (0.9-2) Lipase (73-393) U/L COVID-19 Eval Order Covid19 IDNow [facility] SARS-CoV-2, RNA, NAAT NEGATIVE (NEGATIVE)
--- NOTE | 2020-12-13 14:28 | Hospitalist Consultation ---
Date of Consultation December 13, 2020 Assessment & Plan (1) Acute dehydration: (2) Hyperemesis affecting , antepartum: This is a 25yo F at 16 weeks with hyperemesis gravidarum and marijuana use who presents with intractable nausea and vomiting. In setting of hyperemesis gravidarum, cannabis hyperemesis syndrome Given IV fluids, potassium replacement, Pepcid, Zofran, Phenergan and Reglan Primary mgmt with fluids and antiemetics per OBGYN (3) Hypokalemia: (4) Metabolic acidosis: Repeat lab work shows resolution of hypokalemia since replacement. No longer presence of anion gap. Continue IV fluids, repeat lab work in AM (5) Cannabis hyperemesis syndrome concurrent with and due to cannabis dependence: Counselled on cessation of cannabis as it is likely contributing to ongo ing intractable nausea and vomiting. Recommend Capsaicin cream for CHS PRN (6) Constipation: Had small bowel movement yesterday, will add PRN Miralax in case contributing to abdominal discomfort (7) Anxiety: (8) Depression: Reportedly started on Prozac 2 weeks ago by psychiatrist, Dr. Garcia. Continnue Dispo: Per primary service Patient seen in collaboration with Dr. Milner. Please see addendum. Supervising Physician Co-Signing Physician Notes Patient is a 25-year-old female at 6 weeks gestation. with PMH of Anxiety, depression, marijuana use and other medical problems was consulted for intractable nausea, vomiting. Please review HPI for complete details of presentation. Obstetric ultrasound showed single live fetus, estimated postmenstrual age is 15 weeks and 5 days and resolution of previously described subchorionic hematoma. On blood work patient was noted to have mild leukocytosis, hypokalemia, hyperchloremia, gap metabolic acidosis and elevated lipase at 599. On exam patient is moderately built and nourished, no apparent distress, normocephalic atraumatic, lungs are clear to auscultation, normal breath sounds, S1-S2, no murmur, abdomen soft, nontender, normal bowel sounds, : Deferred, alert, awake, oriented, grossly no focal neurological deficits, no pedal edema. Patient was consulted for management of intractable nausea, vomiting. DD: Could be secondary to hyperemesis gravidarum, cannabis hyperemesis syndrome, constipation. Advised to quit marijuana use. Agree with starting on vitamin B6. Consider capsaicin cream trial if necessary. Antiemetics as per MICROMATIC HONE OPERATOR. Bowel regimen to prevent constipation. Encouraged to ambulate as able. Clear liquid diet for now and advance as tolerated. Agree with replacing potassium supplements. Acidosis corrected with IV fluids. I personally reviewed the record. Patient is interviewed and examined at bedside. Patient's care is coordinated with Norma Muller PA-C. Please refer to the documentation above for details of patient's presentation and for discussion of other issues. History of Present Illness Reason for Consultation: intractable N/V History of Present Illness This is a 25yo F at 16 weeks with hyperemesis gravidarum and marijuana use who presents with intractable nausea and vomiting. has been complicated by hyperemesis gravidarum and has been seen in ED 7 times in the past month for IV fluid hydration and antiemetics. Woke up yesterday morning with nausea and vomiting and has been unable to keep anything down. First started using cannabis tincture in May 2020 for anxiety and depression after obtaining her medical marijuana license online. Product is a tincture she ingests that includes both THC and CBD. Feels that it helps her control nausea and tolerate food, which is why she is continue to use it. Did recently establish with a psychiatrist Dr. Garcia 2 weeks ago for ongoing anxiety and depression and was prescribed Prozac 20mg. Currently endorsing diffuse abdominal discomfort. Some nausea as well but much improved. Denies any fever, chills, headache, lightheadedness, chest pain, shortness of breath or diarrhea. Feels constipated but think she has small bowel movement yesterday. Allergies Allergy/AdvReac Type Severity Reaction Status Date / Time No Known Allergies Allergy Verified 12/13/20 06:03 Home Medications Medication Instructions Recorded Confirmed Type prenat.vits,kannan,[id number] 1 tab PO DAILY 11/06/20 12/13/20 History doxylamine-pyridoxine (vit B6) 1 tab PO Q8H 11/10/20 12/13/20 History metoclopramide HCl 10 mg PO Q6H PRN 11/10/20 12/13/20 History promethazine 25 mg PA Q6H PRN 11/10/20 12/13/20 History ondansetron 4 mg PO Q4 PRN #30 tab 11/11/20 12/13/20 Rx fluoxetine 20 mg PO DAILY 12/13/20 12/13/20 History Patient History Medical History Anxiety Cannabis hyperemesis syndrome concurrent with and due to cannabis dependence Depression GERD (gastroesophageal reflux disease) As a child Hyperemesis affecting , antepartum Marijuana use Surgical History History of cholecystectomy History of esophagogastroduodenoscopy (EGD) Family History Other No significant family history Social History Smoking Status: Former smoker Second Hand Exposure: No; Do You Dip or Chew Tobacco: No; Tobacco Cessation Education Requested by Patient: No Hx Alcohol Use: No Hx Substance Use: Yes Last Used Substance: Hours (ago) Substance Use Type Other:: Medical toby Preferred Language: Belarusian Communication Ability: Effective Nailer Operator Required: No Beliefs That Will Affect Care: None marital status: Single Current Living Situation: Significant Other current occupational status: employed and student Other Information That Helps Us Care for You: Yes (Pt taking medicinal marijuana - prescribed for anxiety/depression.) Feels Safe at Home: Yes Safety Concerns: Feels Safe At This Time Assistive Devices: None Review of Systems Review of Systems: At least ten systems reviewed and negative except as noted in the HPI. Physical Exam Physical Exam: General Appearance: WD/WN, vitals as above, in acute pain, sitting up in bed Head: normocephalic, atraumatic Eyes: normal inspection, PERRL, conjunctivae normal, anicteric sclerae ENT: external ear and nose normal, oropharynx normal Neck: normal visual inspection, trachea midline, no thyromegaly Respiratory: normal respiratory effort, lungs clear to auscultation, no wheeze, rales, rhonchi. No accessory muscle use Cardiovascular: regular rate, rhythm, no murmur, normal peripheral pulses, no BLE edema. Vessels: no JVD Chest: normal inspection of chest Abdomen/GI: normal bowel sounds, soft, diffusely tender but no guarding, no hepatosplenomegaly Extremities/Musculoskeletal: no cyanosis or clubbing, extremities motor strength 5/5 Neurologic: PERRL, EOMI, accommodation nl, no face palsy, no dysarthria, CN's II-XI intact bilaterally and moves all extremities Psychiatric: A+Ox3, anxious Skin: no rashes, normal color, warm/dry Results & Data Results & Data ([facility]) Vital Signs (Past 12 Hours) Vital Signs Temp Pulse Pulse Resp BP BP Pulse Ox 12/13/20 13:00 89 18 123/86 99 12/13/20 11:39 118 H 18 111/80 99 12/13/20 11:02 96 H 18 101/66 98 12/13/20 10:31 80 18 91/48 L 96 12/13/20 10:01 77 18 85/45 L 97 12/13/20 08:44 88 18 121/66 99 12/13/20 05:58 36.3 C L 98 H 20 134/86 97 Laboratory Results Short CBC 12/13/20 12/13/20 Range/Units 06:10 14:57 WBC 14.71 H 11.61 H (4.8-10.8) K/uL Hgb 13.1 11.8 L (12.0-16.0) g/dL Hct 37.0 34.3 L (37-47) % Plt Count 307 231 (130-400) K/uL BMP 12/13/20 12/13/20 06:10 14:57 Sodium 139 141 Potassium 3.2 L 3.6 Chloride 110 H 113 H Carbon Dioxide 17 L 22 BUN 5 L 4 L Creatinine 0.62 0.46 L Glucose 107 H 90 Calcium 8.9 8.0 L Liver Function 12/13/20 12/13/20 12/13/20 Range/Units 06:10 06:10 14:57 Total Bilirubin 0.7 0.5 (0.2-1) mg/dl Direct Bilirubin 0.1 (0-0.2) mg/dl AST 18 18 (15-37) U/L ALT 20 17 (12-78) U/L Alkaline Phosphatase 54 46 (45-117) U/L Albumin 3.3 L 2.9 L (3.4-5.0) gm/dl Urine 12/13/20 Range/Units 18:51 Urine Color Yellow Urine Appearance Clear (Clear) Urine pH 6.0 (4.5-7.5) Ur Specific [place] 1.014 (1.000-1.030) Urine Protein Negative (Negative) Urine Glucose (UA) Negative (Negative) Diagnostic Findings Obstetric ultrasound: IMPRESSION: 1. Single live fetus. The estimated postmenstrual age is 15 weeks and 5 days 2. Interval resolution of the previously described subchorionic hematoma.
--- NOTE | 2020-12-13 15:10 | Ultrasound Report ---
US OB limited CLINICAL HISTORY: . Subchorionic hematoma. COMPARISON STUDY: 11/23/2020 FINDINGS: A single live fetus was identified. The crown-rump length measured 99 mm corresponding to estimated postmenstrual age of 15 weeks and 5 d ays. The femur measured 18 mm corresponding to an estimated postmenstrual age of 15 weeks and 3 days. The BPD measured 30 mm corresponding to an estimated postmenstrual age of 15 weeks and 3 days. Amniotic fluid volume appeared within normal limits for gestational age. The placenta was anterior. No periplacental hemorrhage was identified. The heart rate is 148. A anatomic study was not performed. IMPRESSION: 1. Single live fetus. The estimated postmenstrual age is 15 weeks and 5 days 2. Interval resolution of the previously described subchorionic hematoma. ACT 112: Negative or not required by law. Electronically signed by: Maciej Munoz M.D. 12/13/2020 3:09 PM
[2020-12-13 15:12] LABS: Basophils # (auto) 0.01 K/uL (0-0.2); Basophils % (auto) 0.1 %; Hematocrit (blood only) 34.3 % (37-47); Hemoglobin 11.8 g/dL (12.0-16.0); Immature Granulocytes # (auto) 0.03 K/uL (0.00-0.02); Immature Granulocytes % (auto) 0.3 %; Lymphocytes # (auto) 1.91 K/uL (1.2-3.4); Lymphocytes % (auto) 16.5 %; Mean Corpuscular Hemoglobin 29.9 pg (25-34); Mean Corpuscular Hgb Conc 34.4 g/dL (32-36); Mean Corpuscular Volume 86.8 fL (80-100); Mean Platelet Volume 10.2 fL (7.4-10.4); Monocytes # (auto) 0.67 K/uL (0.11-0.59); Monocytes % (auto) 5.8 %; Neutrophils # (auto) 8.99 K/uL (1.4-6.5); Neutrophils % (auto) 77.3 %; Platelet Count 231 K/uL (130-400); RDW Coefficient of Variation 13.8 % (11.5-14.5); RDW Standard Deviation 44.2 fL (36.4-46.3); Red Blood Count 3.95 M/uL (4.2-5.4); White Blood Count 11.61 K/uL (4.8-10.8)
[2020-12-13 15:45] LABS: Alanine Aminotransferase 17 U/L (12-78); Albumin Level 2.9 gm/dl (3.4-5.0); Aspartate Aminotransferase 18 U/L (15-37); BUN Creatinine Ratio 7.6 (10-20); Blood Urea Nitrogen 4 mg/dl (7-18); Carbon Dioxide 22 mmol/L (21-32); Chloride 113 mmol/L (98-107); Est GFR (African American) > 150.0; Est GFR (Non-African American) 137.3; Glucose 90 mg/dl (70-99); Lipase 599 U/L (73-393); Potassium 3.6 mmol/L (3.5-5.1); Sodium 141 mmol/L (136-145)
[2020-12-13 15:47] LABS: Albumin Globulin Ratio 0.9 (0.9-2); Alkaline Phosphatase 46 U/L (45-117); Bilirubin,Total 0.5 mg/dl (0.2-1); Globulin 3.3 gm/dl (2.5-4.0); Total Protein 6.2 gm/dl (6.4-8.2)
[2020-12-13] MEDS ORDERED: D5W AND 1/2NSS + 20MEQ KCL 20 MEQ/1,000 ML BAG IV SCH (18:00)
[2020-12-13] MEDS: METOCLOPRAMIDE HCL INJ 5 MG/ML 2 ML VIAL IV PRN (18:33)
[2020-12-13] MEDS: MULTIVITAMIN CHEWABLE TAB PO SCH (18:33)
[2020-12-13 18:55] LABS: Appearance Urine Clear (Clear); Bilirubin Urine Negative (Negative); Blood Urine Negative (Negative); Color Urine Yellow; Glucose Urine UA Negative (Negative); Ketones Urine 3+ (Negative); Leukocyte Esterase Urine Negative (Negative); Nitrite Urine Negative (Negative); Protein Urine Negative (Negative); Specific Gravity Urine 1.014 (1.000-1.030); Urobilinogen Urine Negative (Negative)
[2020-12-13] MEDS ORDERED: POLYETHYLENE (MIRALAX) 17 GM PACK PO PRN (19:36)
[2020-12-13] MEDS: PYRIDOXINE HCL 50 MG TAB PO SCH (20:23)
[2020-12-13] MEDS ORDERED: PYRIDOXINE HCL 50 MG TAB PO SCH (21:00)
[2020-12-13] MEDS ORDERED: FAMOTIDINE 20 MG TAB PO SCH (21:00)
[2020-12-13] MEDS: ONDANSETRON INJ 2 MG/ML 2 ML VIAL IV PRN (21:47)
[2020-12-14] MEDS: D5W AND LACTATED RINGERS 1,000 ML IV SCH ×2 (00:40→08:32)
[2020-12-14] MEDS: ONDANSETRON INJ 2 MG/ML 2 ML VIAL IV PRN (03:38)
[2020-12-14 06:24] LABS: Basophils # (auto) 0.03 K/uL (0-0.2); Basophils % (auto) 0.3 %; Eosinophils # (auto) 0.08 K/uL (0-0.5); Eosinophils % (auto) 0.9 %; Hematocrit (blood only) 32.5 % (37-47); Hemoglobin 11.1 g/dL (12.0-16.0); Immature Granulocytes # (auto) 0.04 K/uL (0.00-0.02); Immature Granulocytes % (auto) 0.4 %; Lymphocytes # (auto) 3.03 K/uL (1.2-3.4); Lymphocytes % (auto) 33.6 %; Mean Corpuscular Hemoglobin 29.9 pg (25-34); Mean Corpuscular Hgb Conc 34.2 g/dL (32-36); Mean Corpuscular Volume 87.6 fL (80-100); Mean Platelet Volume 10.3 fL (7.4-10.4); Monocytes # (auto) 0.61 K/uL (0.11-0.59); Monocytes % (auto) 6.8 %; Neutrophils # (auto) 5.24 K/uL (1.4-6.5); Platelet Count 222 K/uL (130-400); RDW Coefficient of Variation 14.1 % (11.5-14.5); RDW Standard Deviation 45.1 fL (36.4-46.3); Red Blood Count 3.71 M/uL (4.2-5.4); White Blood Count 9.03 K/uL (4.8-10.8)
[2020-12-14 06:57] LABS: Alanine Aminotransferase 17 U/L (12-78); Albumin Level 2.7 gm/dl (3.4-5.0); Aspartate Aminotransferase 12 U/L (15-37); Blood Urea Nitrogen < 1 mg/dl (7-18); Calcium 8.2 mg/dl (8.5-10.1); Carbon Dioxide 21 mmol/L (21-32); Chloride 114 mmol/L (98-107); Creatinine Clr Calc Pharmacy 202.8 ml/min; Est GFR (African American) > 150.0; Glucose 95 mg/dl (70-99); Potassium 3.4 mmol/L (3.5-5.1); Sodium 142 mmol/L (136-145)
[2020-12-14 06:59] LABS: Alkaline Phosphatase 39 U/L (45-117); Bilirubin,Total 0.4 mg/dl (0.2-1); Globulin 2.8 gm/dl (2.5-4.0); Total Protein 5.5 gm/dl (6.4-8.2)
[2020-12-14] MEDS: METOCLOPRAMIDE HCL INJ 5 MG/ML 2 ML VIAL IV PRN (08:23)
[2020-12-14] MEDS ORDERED: NON-FORMULARY MEDICATION (Prenat.Vits,Cal,Min-Iron-Folic Tablet) PO SCH (09:00)
[2020-12-14] MEDS ORDERED: NON-FORMULARY MEDICATION (Omeprazole 20 mg capsule,delayed release(DR/EC)) PO SCH (09:00)
[2020-12-14] MEDS: PYRIDOXINE HCL 50 MG TAB PO SCH (09:17)
[2020-12-14] MEDS: MULTIVITAMIN CHEWABLE TAB PO SCH (09:17)
[2020-12-14 09:39] LABS: Appearance Urine Clear (Clear); Bilirubin Urine Negative (Negative); Blood Urine Negative (Negative); Color Urine Yellow; Glucose Urine UA Negative (Negative); Ketones Urine Negative (Negative); Leukocyte Esterase Urine Negative (Negative); Nitrite Urine Negative (Negative); Protein Urine Negative (Negative); Specific Gravity Urine 1.012 (1.000-1.030); Urobilinogen Urine Negative (Negative); pH Urine 7.5 (4.5-7.5)
[2020-12-14] MEDS ORDERED: POTASSIUM CHLORIDE / WTR 10 MEQ/100 ML PLCT IV ONE (10:15)
--- NOTE | 2020-12-14 11:05 | Obstetrical Progress Note ---
Date of Service December 14, 2020 Assessment & Plan Admission and Anticipated Discharge Date Admission Date: December 13, 2020 Subjective She feels better and wants to go home No N&V since yesterday am She has been keeping clears and jello down and wants to eat regular diet No VB/spotting/abd pain/ cramping Discussed US results Vital Signs Temp Pulse Resp BP BP Pulse Ox Pulse Ox 12/14/20 08:30 36.8 C 73 18 110/66 100 12/14/20 03:35 36.7 C 71 18 114/72 99 12/14/20 00:35 36.8 C 64 18 111/65 99 99 12/14/20 12/14/20 12/14/20 Range/Units 09:00 05:50 05:50 WBC 9.03 (4.8-10.8) K/uL RBC 3.71 L (4.2-5.4) M/uL Hgb 11.1 L (12.0-16.0) g/dL Hct 32.5 L (37-47) % MCV 87.6 (80-100) fL MCH 29.9 (25-34) pg MCHC 34.2 (32-36) g/dL RDW Std Deviation 45.1 (36.4-46.3) fL RDW Coeff of Reji 14.1 (11.5-14.5) % Plt Count 222 (130-400) K/uL MPV 10.3 (7.4-10.4) fL Immature Gran % (Auto) 0.4 % Neut % (Auto) 58.0 % Lymph % (Auto) 33.6 % [place] % (Auto) 6.8 % Eos % (Auto) 0.9 % Baso % (Auto) 0.3 % Neut # (Auto) 5.24 (1.4-6.5) K/uL Lymph # (Auto) 3.03 (1.2-3.4) K/uL [place] # (Auto) 0.61 H (0.11-0.59) K/uL Eos # (Auto) 0.08 (0-0.5) K/uL Baso # (Auto) 0.03 (0-0.2) K/uL Immature Gran # (Auto) 0.04 H (0.00-0.02) K/uL Sodium 142 (136-145) mmol/L Potassium 3.4 L (3.5-5.1) mmol/L Chloride 114 H (98-107) mmol/L Carbon Dioxide 21 (21-32) mmol/L Anion Gap 7.0 (3-11) BUN < 1 L (7-18) mg/dl Creatinine 0.39 L (0.6-1.2) mg/dl Est Cr Clr Drug Dosing 202.8 ml/min Est GFR ( Amer) > 150.0 Est GFR (Non-Af Amer) 145.0 BUN/Creatinine Ratio TNP (10-20) Glucose 95 (70-99) mg/dl Calcium 8.2 L (8.5-10.1) mg/dl Total Bilirubin 0.4 (0.2-1) mg/dl AST 12 L (15-37) U/L ALT 17 (12-78) U/L Alkaline Phosphatase 39 L (45-117) U/L Total Protein 5.5 L (6.4-8.2) gm/dl Albumin 2.7 L (3.4-5.0) gm/dl Globulin 2.8 (2.5-4.0) gm/dl Albumin/Globulin Ratio 1.0 (0.9-2) Lipase (73-393) U/L Urine Color Yellow Urine Appearance Clear (Clear) Urine pH 7.5 (4.5-7.5) Ur Specific [place] 1.012 (1.000-1.030) Urine Protein Negative (Negative) Urine Glucose (UA) Negative (Negative) Urine Ketones Negative (Negative) Urine Blood Negative (Negative) Urine Nitrite Negative (Negative) Urine Bilirubin Negative (Negative) Urine Urobilinogen Negative (Negative) Ur Leukocyte Esterase Negative (Negative) COVID-19 Eval Order SARS-CoV-2, RNA, NAAT (NEGATIVE) 12/13/20 12/13/20 12/13/20 Range/Units 18:51 14:57 14:57 WBC 11.61 H (4.8-10.8) K/uL RBC 3.95 L (4.2-5.4) M/uL Hgb 11.8 L (12.0-16.0) g/dL Hct 34.3 L (37-47) % MCV 86.8 (80-100) fL MCH 29.9 (25-34) pg MCHC 34.4 (32-36) g/dL RDW Std Deviation 44.2 (36.4-46.3) fL RDW Coeff of Reji 13.8 (11.5-14.5) % Plt Count 231 (130-400) K/uL MPV 10.2 (7.4-10.4) fL Immature Gran % (Auto) 0.3 % Neut % (Auto) 77.3 % Lymph % (Auto) 16.5 % [place] % (Auto) 5.8 % Eos % (Auto) 0.0 % Baso % (Auto) 0.1 % Neut # (Auto) 8.99 H (1.4-6.5) K/uL Lymph # (Auto) 1.91 (1.2-3.4) K/uL [place] # (Auto) 0.67 H (0.11-0.59) K/uL Eos # (Auto) 0.00 (0-0.5) K/uL Baso # (Auto) 0.01 (0-0.2) K/uL Immature Gran # (Auto) 0.03 H (0.00-0.02) K/uL Sodium 141 (136-145) mmol/L Potassium 3.6 (3.5-5.1) mmol/L Chloride 113 H (98-107) mmol/L Carbon Dioxide 22 (21-32) mmol/L Anion Gap 6.0 (3-11) BUN 4 L (7-18) mg/dl Creatinine 0.46 L (0.6-1.2) mg/dl Est Cr Clr Drug Dosing 172.0 ml/min Est GFR ( Amer) > 150.0 Est GFR (Non-Af Amer) 137.3 BUN/Creatinine Ratio 7.6 L (10-20) Glucose 90 (70-99) mg/dl Calcium 8.0 L (8.5-10.1) mg/dl Total Bilirubin 0.5 (0.2-1) mg/dl AST 18 (15-37) U/L ALT 17 (12-78) U/L Alkaline Phosphatase 46 (45-117) U/L Total Protein 6.2 L (6.4-8.2) gm/dl Albumin 2.9 L (3.4-5.0) gm/dl Globulin 3.3 (2.5-4.0) gm/dl Albumin/Globulin Ratio 0.9 (0.9-2) Lipase 599 H (73-393) U/L Urine Color Yellow Urine Appearance Clear (Clear) Urine pH 6.0 (4.5-7.5) Ur Specific [place] 1.014 (1.000-1.030) Urine Protein Negative (Negative) Urine Glucose (UA) Negative (Negative) Urine Ketones 3+ H (Negative) Urine Blood Negative (Negative) Urine Nitrite Negative (Negative) Urine Bilirubin Negative (Negative) Urine Urobilinogen Negative (Negative) Ur Leukocyte Esterase Negative (Negative) COVID-19 Eval Order SARS-CoV-2, RNA, NAAT (NEGATIVE) 12/13/20 12/13/20 Range/Units 13:28 13:28 WBC (4.8-10.8) K/uL RBC (4.2-5.4) M/uL Hgb (12.0-16.0) g/dL Hct (37-47) % MCV (80-100) fL MCH (25-34) pg MCHC (32-36) g/dL RDW Std Deviation (36.4-46.3) fL RDW Coeff of Reji (11.5-14.5) % Plt Count (130-400) K/uL MPV (7.4-10.4) fL Immature Gran % (Auto) % Neut % (Auto) % Lymph % (Auto) % [place] % (Auto) % Eos % (Auto) % Baso % (Auto) % Neut # (Auto) (1.4-6.5) K/uL Lymph # (Auto) (1.2-3.4) K/uL [place] # (Auto) (0.11-0.59) K/uL Eos # (Auto) (0-0.5) K/uL Baso # (Auto) (0-0.2) K/uL Immature Gran # (Auto) (0.00-0.02) K/uL Sodium (136-145) mmol/L Potassium (3.5-5.1) mmol/L Chloride (98-107) mmol/L Carbon Dioxide (21-32) mmol/L Anion Gap (3-11) BUN (7-18) mg/dl Creatinine (0.6-1.2) mg/dl Est Cr Clr Drug Dosing ml/min Est GFR ( Amer) Est GFR (Non-Af Amer) BUN/Creatinine Ratio (10-20) Glucose (70-99) mg/dl Calcium (8.5-10.1) mg/dl Total Bilirubin (0.2-1) mg/dl AST (15-37) U/L ALT (12-78) U/L Alkaline Phosphatase (45-117) U/L Total Protein (6.4-8.2) gm/dl Albumin (3.4-5.0) gm/dl Globulin (2.5-4.0) gm/dl /Globulin Ratio (0.9-2) Lipase (73-393) U/L Urine Color Urine Appearance (Clear) Urine pH (4.5-7.5) Ur Specific [place] (1.000-1.030) Urine Protein (Negative) Urine Glucose (UA) (Negative) Urine Ketones (Negative) Urine Blood (Negative) Urine Nitrite (Negative) Urine Bilirubin (Negative) Urine Urobilinogen (Negative) Ur Leukocyte Esterase (Negative) [facility], [facility], NAAT NEGATIVE (NEGATIVE) AP: 35 25-year-old G1 para 0 at 16 wks of gestation with history of hyperemesis gravidarum and marijuana use during with persistent nausea and vomiting on 12/12 till 215 am Admitted for IV fluids and antiemetics. No episodes of nausea no vomiting almost 24 hours. Patient desires discharge now after IV KCL is complete Appreciate hospitalist consult, patient understands the recommendation stopping marijuana use. All Questions were answered d/c home and f/u in office Results & Data ([facility]) Vital Signs (Past 12 Hours) Vital Signs Temp Pulse Resp BP BP Pulse Ox Pulse Ox 12/14/20 08:30 36.8 C 73 18 110/66 100 12/14/20 03:35 36.7 C 71 18 114/72 99 12/14/20 00:35 36.8 C 64 18 111/65 99 99
--- NOTE | 2020-12-14 12:29 | Hospitalist Progress Note ---
Date of Service December 14, 2020 Assessment & Plan (1) Acute dehydration: (2) Hyperemesis affecting , antepartum: Patient is a 25yo F at 16 weeks with hyperemesis gravidarum and marijuana use who presents with intractable nausea and vomiting. Nausea/Vomiting In setting of hyperemesis gravidarum, cannabis hyperemesis syndrome Given IV fluids Antiemetics per OBGYN Continue Vitamin B6 Bowel regimen to prevent constipation Advance diet as tolerated (3) Hypokalemia: Replace electrolytes as needed (4) Metabolic acidosis: Resolved with IV fluids Monitor (5) Cannabis hyperemesis syndrome concurrent with and due to cannabis dependence: Counselled on cessation of cannabis as it is likely contributing to ongoing intractable nausea and vomiting. Recommend Capsaicin cream trial if necessary (6) Constipation: continue bowel regimen (7) Anxiety: (8) Depression: Reportedly started on Prozac 2 weeks ago by psychiatrist, Dr. Garcia. Continnue Code Status Full Code Admission and Anticipated Discharge Date Admission Date: December 13, 2020 Subjective Patient is seen and examined at bedside Reports nausea but no vomiting Eager to get discharged home Tolerating clear liquid diet Counseled to quit marijuana use Discussed with BED OPERATOR today Denies chest pain, dyspnea, abdominal pain Review of Systems Review of Systems: All systems reviewed & are unremarkable except as noted in HPI & below Physical Exam Physical Exam: Physical Exam: Vitals signs as noted above General Appearance:Moderately built and nourished, no apparent distress Head: normocephalic, Atraumatic Eyes: normal inspection, EOMI Neck: supple, Trachea midline Respiratory/Chest: Normal breath sounds, CTA Cardiovascular: S1, S2, No murmur Abdomen/GI:Soft, Non tender, Bowel sounds present Extremities/Musculoskelatal:normal inspection, no edema Neurologic/Psych:AAOX3, grossly no focal neurological deficits Skin: normal color, warm Results & Data Results & Data ([facility]) Vital Signs (Past 12 Hours) Vital Signs Temp Pulse Pulse Resp BP BP Pulse Ox 12/14/20 12:10 36.8 C 73 71 18 114/72 110/66 100 12/14/20 11:32 36.8 C 73 18 110/66 100 12/14/20 08:30 36.8 C 73 18 110/66 100 12/14/20 03:35 36.7 C 71 18 114/72 99 12/14/20 00:35 36.8 C 64 18 111/65 99 Pulse Ox 12/14/20 12:10 12/14/20 11:32 12/14/20 08:30 12/14/20 03:35 12/14/20 00:35 99 Laboratory Results Short CBC 12/14/20 Range/Units 05:50 WBC 9.03 (4.8-10.8) K/uL Hgb 11.1 L (12.0-16.0) g/dL Hct 32.5 L (37-47) % Plt Count 222 (130-400) K/uL BMP 12/14/20 05:50 Sodium 142 Potassium 3.4 L Chloride 114 H Carbon Dioxide 21 BUN < 1 L Creatinine 0.39 L Glucose 95 Calcium 8.2 L Liver Function 12/14/20 Range/Units 05:50 Total Bilirubin 0.4 (0.2-1) mg/dl AST 12 L (15-37) U/L ALT 17 (12-78) U/L Alkaline Phosphatase 39 L (45-117) U/L Albumin 2.7 L (3.4-5.0) gm/dl Urine 12/13/20 12/14/20 Range/Units 18:51 09:00 Urine Color Yellow Yellow Urine Appearance Clear Clear (Clear) Urine pH 6.0 7.5 (4.5-7.5) Ur Specific [place] 1.014 1.012 (1.000-1.030) Urine Protein Negative Negative (Negative) Urine Glucose (UA) Negative Negative (Negative)
--- NOTE | 2020-12-23 03:32 | Discharge Summary (DS) ---
DETAILS OF ADMISSION: The patient is a 25-year-old G1, P0 at 16 weeks of gestation with history of hyperemesis gravidarum, history of medical marijuana use and persistent nausea and vomiting since 12/12/2020. She presented to ER and found to have low potassium, elevated anion gap and ketones in her urine. Recommended for admission for overnight IV fluids, antiemetics, and consultation from hospitalist for marijuana use. She received IV fluids, IV Zofran, Phenergan and IV potassium. Her repeat labs were improved. Anion gap came down to normal and potassium increased to normal. She wanted to eat. She was started on clears and then Jello and a regular diet next morning. She felt better after admission. She had no nausea or vomiting since admission. She wanted to go home on the morning of 12/14/2020. Discharge instructions were given. Prescriptions were written for nausea and she was recommended to follow up with her medical doctor as well as her psychiatrist for her depression medications and weaning off from marijuana.
== END 2020-12-14 12:10 | disposition home or self-care (01) ==
LOC: ED 05:52 → INTOOBSV 13:15 → 4S2 13:15

== ENCOUNTER 2021-03-29 20:48 | Observation (INO) ==
[2021-03-29] MEDS ORDERED: LACTATED RINGER'S 1,000 ML IV ONE (20:51)
[2021-03-29] MEDS: LACTATED RINGER'S 1,000 ML IV SCH (20:51)
[2021-03-29] MEDS ORDERED: PROMETHAZINE HCL 25 MG in SODIUM CHLORIDE 0.9% 50 ML IV PRN (20:51)
[2021-03-29] MEDS ORDERED: METOCLOPRAMIDE HCL INJ 5 MG/ML 2 ML VIAL IV PRN (20:54)
[2021-03-29] MEDS: ONDANSETRON INJ 2 MG/ML 2 ML VIAL IV PRN (21:42)
[2021-03-29 21:51] LABS: Hematocrit (blood only) 33.5 % (37-47); Hemoglobin 11.5 g/dL (12.0-16.0); Mean Corpuscular Hemoglobin 28.7 pg (25-34); Mean Corpuscular Hgb Conc 34.3 g/dL (32-36); Mean Corpuscular Volume 83.5 fL (80-100); Mean Platelet Volume 10.5 fL (7.4-10.4); Platelet Count 297 K/uL (130-400); RDW Coefficient of Variation 14.1 % (11.5-14.5); Red Blood Count 4.01 M/uL (4.2-5.4); White Blood Count 23.99 K/uL (4.8-10.8)
[2021-03-29 22:11] LABS: Alanine Aminotransferase 12 U/L (12-78); Albumin Level 2.9 gm/dl (3.4-5.0); Aspartate Aminotransferase 21 U/L (15-37); BUN Creatinine Ratio 14.4 (10-20); Blood Urea Nitrogen 7 mg/dl (7-18); Calcium 9.4 mg/dl (8.5-10.1); Carbon Dioxide 17 mmol/L (21-32); Chloride 107 mmol/L (98-107); Creatinine Clr Calc Pharmacy 176.5 ml/min; Est GFR (African American) > 150.0 ml/min; Est GFR (Non-African American) 136.3 ml/min; Glucose 107 mg/dl (70-99); Potassium 3.3 mmol/L (3.5-5.1); Sodium 137 mmol/L (136-145)
[2021-03-29 22:14] LABS: Albumin Globulin Ratio 0.7 (0.9-2); Alkaline Phosphatase 97 U/L (45-117); Bilirubin,Total 0.7 mg/dl (0.2-1); Globulin 4.2 gm/dl (2.5-4.0); Total Protein 7.1 gm/dl (6.4-8.2)
[2021-03-29 22:33] LABS: Basophils # (auto) 0.01 K/uL (0-0.2); Eosinophils # (auto) 0.01 K/uL (0-0.5); Immature Granulocytes # (auto) 0.15 K/uL (0.00-0.02); Immature Granulocytes % (auto) 0.6 %; Lymphocytes # (auto) 1.21 K/uL (1.2-3.4); Monocytes # (auto) 0.85 K/uL (0.11-0.59); Monocytes % (auto) 3.5 %; Neutrophils # (auto) 21.76 K/uL (1.4-6.5); Neutrophils % (auto) 90.9 %
[2021-03-29 23:02] LABS: Amylase 37 U/L (25-115); Lipase 132 U/L (73-393)
[2021-03-29] MEDS ORDERED: POTASSIUM CHLORIDE / WTR 10 MEQ/100 ML PLCT IV ONE (23:15)
--- NOTE | 2021-03-29 23:17 | History & Physical Report ---
Date of Service March 29, 2021 Assessment & Plan (1) Cannabis hyperemesis syndrome concurrent with and due to cannabis depende nce: 25-year-old G1, P0 at 30 weeks and 5 days of gestation presenting with another episodes of nausea vomiting, abdominal pain/periumbilical pain, history of marijuana use, cannabis hyper emesis syndrome Vital signs stable afebrile by oral temperature but increased skin temperature on face heart rate reassuring, no signs of symptoms of labor Elevated white blood cell count Plan to observe, monitor, IV fluids, IV antiemetics, IV potassium and repeat labs in a.m. Consult hospitalist (2) Marijuana use: (3) Hypokalemia: (4) Nausea and vomiting during : (5) Elevated WBC count: History of Present Illness Primary Care Provider: Bo Yo MD Patient is a 25-year-old at 30 weeks and 5 days of gestation who woke up this morning with severe nausea vomiting and abdominal pain at 4 AM. She states she forgot to take her girlfriend/Zofran and then she woke up with this episode again. She tried to take it but everything has been coming up and unable to keep any medicine or fluid down. She also have pain around bellybutton with yobani sea does not radiate to anywhere else and denies contractions, leakage of fluid or vaginal bleeding. She has a history of cannabis hyperemesis syndrome due to cannabis dependence. She presented to ER many times and admitted to [facility] for this during first trimester and early second trimester. She states she has been well since week 20 until today. She has medical marijuana card and uses regularly. She feels hot and she desires to go under cold water in the shower. She did she had one-time diarrhea this morning and then stop. She has history of cholecystectomy at age 15. Allergies Allergy/AdvReac Type Severity Reaction Status Date / Time No Known Allergies Allergy Verified 03/27/21 21:10 Home Medications Medication Instructions Recorded Confirmed Type prenat.vits,kannan,jrv-dvqy-ytyyn 1 tab PO DAILY 11/06/20 03/27/21 History omeprazole 20 mg PO QAM 12/18/20 03/27/21 History ondansetron 4 mg PO Q4H PRN 12/18/20 03/27/21 History dextroamphetamine-amphetamine 20 mg PO DAILY 03/27/21 03/27/21 History fluoxetine [Prozac] 60 mg PO DAILY 03/27/21 03/27/21 History iron,iron asp gly-FA-mv,min38 125 tab PO DAILY 03/27/21 03/27/21 History Patient History Medical History Anxiety Cannabis hyperemesis syndrome concurrent with and due to cannabis dependence Depression GERD (gastroesophageal reflux disease) As a child History of hepatitis C Received Theresa in 2017; Pt has had negative HCV loads since Hyperemesis affecting , antepartum Marijuana use Surgical History History of cholecystectomy History of esophagogastroduodenoscopy (EGD) Family History Other No significant family history Social History Smoking Status: Former smoker Tobacco Type: Cigarettes Second Hand Exposure: No; Hx Alcohol Use: No Hx Substance Use: Yes Last Used Substance: Hours (ago) Last Used Substance Other:: Currently using medical marijuana last used today Substance Use Type Other:: 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 Preferred Language: Hungarian Communication Ability: Effective Batch Or Continuous Still Operator Required: No Beliefs That Will Affect Care: None marital status: Single Current Living Situation: Significant Other current occupational status: employed and student Feels Safe at Home: Yes Safety Concerns: Feels Safe At This Time Assistive Devices: None Review of Systems All systems reviewed & are unremarkable except as noted in HPI & below Physical Exam Constitutional: WD/WN, vitals as above well developed and + ill appearing (She is on her side and knees were pulled to her abdomen.) Gastrointestinal (Abdomen): normal bowel sounds, soft, nontender, no hepatosplenomegaly (Tenderness on the periumbilical area only.) No right upper quadrant tenderness, no epigastric tenderness, no right lower quadrant tenderness, no left lower quadrant tenderness. No rebound, no Defense No contractions palpated on the uterus, no documented on tocodynamometer. Genitourinary: normal external appearance Manual OB Exam: + cervical dilation 1 cm, + cervical effacement 30% and + station high OB Exam Monitor Tracing: + category I Results & Data ([facility]) Vital Signs (Past 12 Hours) Vital Signs Temp Pulse Resp BP 03/29/21 21:03 36.8 C 18 03/29/21 20:58 86 141/86 H Laboratory Results Lab Results 03/29/21 03/29/21 Range/Units 21:35 21:35 WBC 23.99 H (4.8-10.8) K/uL RBC 4.01 L (4.2-5.4) M/uL Hgb 11.5 L (12.0-16.0) g/dL Hct 33.5 L (37-47) % MCV 83.5 (80-100) fL MCH 28.7 (25-34) pg MCHC 34.3 (32-36) g/dL RDW Std Deviation 43.0 (36.4-46.3) fL RDW Coeff of Reji 14.1 (11.5-14.5) % Plt Count 297 (130-400) K/uL MPV 10.5 H (7.4-10.4) fL Immature Gran % (Auto) 0.6 % Neut % (Auto) 90.9 % Lymph % (Auto) 5.0 % [place] % (Auto) 3.5 % Eos % (Auto) 0.0 % Baso % (Auto) 0.0 % Neut # (Auto) 21.76 H (1.4-6.5) K/uL Lymph # (Auto) 1.21 (1.2-3.4) K/uL [place] # (Auto) 0.85 H (0.11-0.59) K/uL Eos # (Auto) 0.01 (0-0.5) K/uL Baso # (Auto) 0.01 (0-0.2) K/uL Immature Gran # (Auto) 0.15 H (0.00-0.02) K/uL Sodium 137 (136-145) mmol/L Potassium 3.3 L (3.5-5.1) mmol/L Chloride 107 (98-107) mmol/L Carbon Dioxide 17 L (21-32) mmol/L Anion Gap 13.0 H (3-11) BUN 7 (7-18) mg/dl Creatinine 0.47 L (0.6-1.2) mg/dl Est Cr Clr Drug Dosing 176.5 ml/min Est GFR ( Amer) > 150.0 ml/min Est GFR (Non-Af Amer) 136.3 ml/min BUN/Creatinine Ratio 14.4 (10-20) Glucose 107 H (70-99) mg/dl Calcium 9.4 (8.5-10.1) mg/dl Total Bilirubin 0.7 (0.2-1) mg/dl AST 21 (15-37) U/L ALT 12 (12-78) U/L Alkaline Phosphatase 97 (45-117) U/L Total Protein 7.1 (6.4-8.2) gm/dl Albumin 2.9 L (3.4-5.0) gm/dl Globulin 4.2 H (2.5-4.0) gm/dl Albumin/Globulin Ratio 0.7 L (0.9-2) Amylase 37 (25-115) U/L Lipase 132 (73-393) U/L
[2021-03-29] MEDS ORDERED: CALCIUM CARBONATE 500 MG CHEWABLE TAB PO PRN (23:21)
[2021-03-29] MEDS ORDERED: diphenhydrAMINE Capsule 25 MG CAP PO ONE (23:21)
[2021-03-29] MEDS ORDERED: FAMOTIDINE 20 MG in SYRINGE 3 ML IV ONE (23:30)
[2021-03-30 00:11] LABS: Appearance Urine Clear (Clear); Bilirubin Urine Negative (Negative); Blood Urine Negative (Negative); Color Urine Yellow; Glucose Urine UA Negative (Negative); Ketones Urine 4+ (Negative); Leukocyte Esterase Urine Negative (Negative); Nitrite Urine Negative (Negative); Protein Urine Negative (Negative); Specific Gravity Urine 1.011 (1.000-1.030); Urobilinogen Urine Negative (Negative); pH Urine 5.5 (4.5-7.5)
[2021-03-30 00:32] LABS: Amphetamines+Metham, Urine Neg (Neg); Barbiturates, Urine Neg (Neg); Benzodiazepine, Urine Neg (Neg); Cocaine, Urine Neg (Neg); MDMA (Ecstacy), Urine Neg (Neg); Methadone, Urine Neg (Neg); Opiate, Urine Neg (Neg); Phencyclidine, Urine Neg (Neg)
[2021-03-30] MEDS: LACTATED RINGER'S 1,000 ML IV SCH ×2 (00:51→07:42)
[2021-03-30 06:34] LABS: Basophils # (auto) 0.01 K/uL (0-0.2); Hematocrit (blood only) 32.4 % (37-47); Hemoglobin 10.9 g/dL (12.0-16.0); Immature Granulocytes # (auto) 0.16 K/uL (0.00-0.02); Immature Granulocytes % (auto) 0.8 %; Lymphocytes # (auto) 2.68 K/uL (1.2-3.4); Lymphocytes % (auto) 13.1 %; Mean Corpuscular Hemoglobin 29.3 pg (25-34); Mean Corpuscular Hgb Conc 33.6 g/dL (32-36); Mean Corpuscular Volume 87.1 fL (80-100); Mean Platelet Volume 10.7 fL (7.4-10.4); Monocytes # (auto) 1.31 K/uL (0.11-0.59); Monocytes % (auto) 6.4 %; Neutrophils # (auto) 16.37 K/uL (1.4-6.5); Neutrophils % (auto) 79.7 %; Platelet Count 319 K/uL (130-400); RDW Coefficient of Variation 14.5 % (11.5-14.5); RDW Standard Deviation 45.5 fL (36.4-46.3); Red Blood Count 3.72 M/uL (4.2-5.4); White Blood Count 20.53 K/uL (4.8-10.8)
[2021-03-30 07:03] LABS: Alanine Aminotransferase 13 U/L (12-78); Albumin Level 2.6 gm/dl (3.4-5.0); Aspartate Aminotransferase 20 U/L (15-37); BUN Creatinine Ratio 9.2 (10-20); Blood Urea Nitrogen 4 mg/dl (7-18); Calcium 8.5 mg/dl (8.5-10.1); Carbon Dioxide 22 mmol/L (21-32); Chloride 109 mmol/L (98-107); Creatinine Clr Calc Pharmacy 180.3 ml/min; Est GFR (African American) > 150.0 ml/min; Est GFR (Non-African American) 137.3 ml/min; Glucose 88 mg/dl (70-99); Potassium 3.2 mmol/L (3.5-5.1); Sodium 139 mmol/L (136-145)
[2021-03-30 07:06] LABS: Albumin Globulin Ratio 0.7 (0.9-2); Alkaline Phosphatase 87 U/L (45-117); Bilirubin,Total 0.5 mg/dl (0.2-1); Total Protein 6.6 gm/dl (6.4-8.2)
[2021-03-30] MEDS: POTASSIUM CHLORIDE / WTR 10 MEQ/100 ML PLCT IV SCH ×2 (07:53→08:57)
[2021-03-30] MEDS: ONDANSETRON INJ 2 MG/ML 2 ML VIAL IV PRN (08:52)
--- NOTE | 2021-03-30 09:42 | Consultation Report ---
DATE OF CONSULTATION: 03/29/2021 CHIEF COMPLAINT: Nausea and vomiting. HISTORY OF PRESENT ILLNESS: This is a 25-year-old female with past medical history significant for GERD, heartburn during , history of hepatitis C, history of mild hyperemesis gravidarum, antepartum anemia complicating , history of tobacco disorder, history of heroin abuse as per records, history of depression, history of obsessive compulsive personality disorder, anxiety, depression complicating this . Medications exposure during first trimester of . The patient is 1, para 0 at 30 weeks and 5 days of gestation presenting with episodes of nausea, vomiting, abdominal pain and periumbilical pain. History of marijuana use, history of cannabis hyperemesis syndrome. She says she is still using medical marijuana, she did not use for the last 2 days because of nausea. Since yesterday morning she is having severe nausea, vomiting and abdominal pain. Seems she presented to ER many times during first trimester for cannabis hyperemesis syndrome. She says that she is well since week. She has medical marijuana card and uses regularly. She had episode of diarrhea yesterday morning. Currently, she is still nauseous, but not vomiting, abdominal pain with 5/10 severity. Denies any other complaints. No fever, no chills, no cough, no chest pain, no shortness of breath, no headache, no blurred vision, no earache, no runny nose, no sore throat. She want to eat Jellos. ALLERGIES: No known drug allergies. PAST MEDICAL HISTORY: As mentioned above. PAST SURGICAL HISTORY: EGDs, laparoscopic cholecystectomy. MEDICATIONS: The patient is on dextroamphetamine 20 mg p.o. daily, fluoxetine 60 mg p.o. daily, multivitamins daily, omeprazole 20 mg p.o. a.m., Zofran 4 mg p.o. q. 4 hours p.r.n., vitamins 1 tablet p.o. daily. FAMILY HISTORY: Significant for mother has hypertension. SOCIAL HISTORY: Single, former smoker, quit in 09/2020, used 3 packs per week. Alcohol, not drinking currently as per records, use marijuana, history of heroin. REVIEW OF SYMPTOMS: As per HPI. Rest of review of systems negative. PHYSICAL EXAMINATION: GENERAL: The patient is of moderate build, not in acute distress. VITAL SIGNS: Temperature 37.4, pulse 94, respiratory rate 18, blood pressure 121/56. HEENT: Extraocular muscles intact. NECK: No neck masses seen. CARDIOVASCULAR: S1, S2 heard, regular rate and rhythm, no murmur, no gallop. RESPIRATORY SYSTEM: Normal AP diameter. No accessory muscle use. No wheezing, no crackles. ABDOMEN: Soft, bowel sounds present. Mild abdominal discomfort. No guarding, no rigidity. CENTRAL NERVOUS SYSTEM: Cranial nerves II-XII grossly intact. Nonfocal. EXTREMITIES: No edema, no erythema. LABORATORY DATA: WBC 23.9, hemoglobin 11.5, hematocrit 33.5, platelets 297. Sodium 137, potassium 3.3, chloride 107, bicarbonate 7, anion gap 13, BUN 7, creatinine 0.4, serum glucose 107, lactate 1.3, calcium 9.4, total bilirubin 0.7, AST 21, ALT 12, alkaline phosphatase 97. Amylase 37, lipase 132. Urinalysis ketones +4. Urine drug screen, marijuana positive. SARS-CoV-2 PCR negative. ASSESSMENT AND PLAN: This 25-year-old female who presents with nausea, vomiting and abdominal pain, history of cannabis hyperemesis syndrome. Currently using medical marijuana. 1. Nausea, vomiting, abdominal pain, most likely secondary to cannabis use, Leukocytosis is most likely reactive. Lipase is normal, we will follow repeat labs in a.m. and also continue IV fluids. Consult GI in a.m. 2. Metabolic acidosis, 4+ ketones in the urine. Most likely starvation ketosis if no improvement we can change to D5 normal saline, follow labs. 3. 30 weeks , management as per [employer] DEFENSE SPECIALIST. 4. Deep venous thrombosis prophylaxis and disposition as per [employer]. MTDD
--- NOTE | 2021-03-30 10:08 | Gastrointestinal Consultation ---
Date of Consultation March 30, 2021 Assessment & Plan (1) Nausea and vomiting during : 25 year old 1, para 0 at 30 weeks and 5 days of gestation female w/ history of HCV treated w/ Harvoni, GERD, hyperemesis gravidarum, depression, anxiety, OCD, ongoing medicinal marijuana use w/ history of cannabis hyperemesis syndrome admitted with abd pain nausea/vomiting after missed dose of zofran who notes resolution of her symptoms once she was able to resume antiemetics. She is tolerating clear liquid diet and requesting dietary advancement As symptoms resolved, no indication for further testing at this time If symptoms return consider ABD US although she notes her GB was removed for cholecystitis years ago Can continue zofran PRN Recommend marijuana cessation trial given chronic nausea/vomiting and history of hyperemesis syndrome OP EGD if symptoms persist post- Thank you for allowing us to participate in the care of this patient. Please call with any acute changes, questions or concerns. Please see addendum below with additional recommendation from my supervising physician. Supervising Physician Co-Signing Physician Notes I did discuss the patient care with Ms. Velasquez. Unfortunately she was discharged prior to afternoon rounds. The patient does smoke cannabis which could certainly be the culprit of her recurrent nausea and vomiting. It is distressing that she is using cannabis despite her third trimester . History of Present Illness Reason for Consultation: nausea/vomiting Requesting Physician: Michelle Attending Physician: Trae Steen MD History of Present Illness 25 year old 1, para 0 at 30 weeks and 5 days of gestation female w/ history of HCV treated w/ [facility], GERD, hyperemesis gravidarum, depression, anxiety, OCD, ongoing medicinal marijuana use w/ history of cannabis hyperemesis syndrome admitted for evaluation of abd pain, nausea/vomiting. Pt was seen and evaluated, chart reviewed. She notes that she is maintained on zofran HS. She suggests she fell asleep early and missed a dose of this medicine which caused significant upper abd pain, nausea and vomiting. Since resuming medication, abd symptoms are improving. She is presently eating clear liquids requesting dietary advancement. Denies nausea, vomiting, GERD to me. Moving bowels well. Denies black/bloody stools. No abd imaging LFTs and lipase WNL Allergies Allergy/AdvReac Type Severity Reaction Status Date / Time No Known Allergies Allergy Verified 03/27/21 21:10 Home Medications Medication Instructions Recorded Confirmed Type prenat.vits,kannan,[id number]-cdpce 1 tab PO DAILY 11/06/20 03/29/21 History omeprazole 20 mg PO QAM 12/18/20 03/29/21 History ondansetron 4 mg PO Q4H PRN 12/18/20 03/29/21 History dextroamphetamine-amphetamine 20 mg PO DAILY 03/27/21 03/29/21 History fluoxetine [Prozac] 60 mg PO DAILY 03/27/21 03/29/21 History iron,iron asp gly-FA-mv,min38 125 tab PO DAILY 03/27/21 03/29/21 History Patient History Medical History Anxiety Cannabis hyperemesis syndrome concurrent with and due to cannabis dependence Depression GERD (gastroesophageal reflux disease) As a child History of hepatitis C Received Theresa in 2017; Pt has had negative HCV loads since Hyperemesis affecting , antepartum Marijuana use Surgical History History of cholecystectomy History of esophagogastroduodenoscopy (EGD) Family History Other No significant family history Social History Smoking Status: Former smoker Tobacco Type: Cigarettes Second Hand Exposure: No; Hx Alcohol Use: No Hx Substance Use: Yes Last Used Substance: Hours (ago) Last Used Substance Other:: Currently using medical marijuana last used today Substance Use Type Other:: 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 Preferred Language: Greenlandic Communication Ability: Effective 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 Beliefs That Will Affect Care: None marital status: Single Current Living Situation: Significant Other current occupational status: employed and student Feels Safe at Home: Yes Safety Concerns: Feels Safe At This Time Assistive Devices: None Review of Systems Review of Systems: All systems reviewed & are unremarkable except as noted in HPI & below Physical Exam Constitutional: well developed and well nourished; no acute distress and not ill appearing Neck: trachea midline, no thyromegaly Respiratory: normal respiratory effort, lungs clear to auscultation Cardiovascular: RRR, no murmur, no edema Gastrointestinal (Abdomen): normal bowel sounds, soft, nontender, no hepatosplenomegaly Skin: no rashes, warm and dry Results & Data ([facility]) Vital Signs (Past 12 Hours) Vital Signs Temp Pulse Resp BP 03/30/21 07:23 89 124/84 03/30/21 07:19 36.8 C 83 16 115/75 03/30/21 02:31 37.4 C 18 03/30/21 02:29 95 H 121/56 L Laboratory Results 03/30/21 03/30/21 03/29/21 Range/Units 05:52 05:52 23:55 WBC 20.53 H (4.8-10.8) K/uL RBC 3.72 L (4.2-5.4) M/uL Hgb 10.9 L (12.0-16.0) g/dL Hct 32.4 L (37-47) % MCV 87.1 (80-100) fL MCH 29.3 (25-34) pg MCHC 33.6 (32-36) g/dL RDW Std Deviation 45.5 (36.4-46.3) fL RDW Coeff of Reji 14.5 (11.5-14.5) % Plt Count 319 (130-400) K/uL MPV 10.7 H (7.4-10.4) fL Immature Gran % (Auto) 0.8 % Neut % (Auto) 79.7 % Lymph % (Auto) 13.1 % [place] % (Auto) 6.4 % Eos % (Auto) 0.0 % Baso % (Auto) 0.0 % Neut # (Auto) 16.37 H (1.4-6.5) K/uL Lymph # (Auto) 2.68 (1.2-3.4) K/uL [place] # (Auto) 1.31 H (0.11-0.59) K/uL Eos # (Auto) 0.00 (0-0.5) K/uL Baso # (Auto) 0.01 (0-0.2) K/uL Immature Gran # (Auto) 0.16 H (0.00-0.02) K/uL Sodium 139 (136-145) mmol/L Potassium 3.2 L (3.5-5.1) mmol/L Chloride 109 H (98-107) mmol/L Carbon Dioxide 22 (21-32) mmol/L Anion Gap 8.0 (3-11) BUN 4 L (7-18) mg/dl Creatinine 0.46 L (0.6-1.2) mg/dl Est Cr Clr Drug Dosing 180.3 ml/min Est GFR ( Amer) > 150.0 ml/min Est GFR (Non-Af Amer) 137.3 ml/min BUN/Creatinine Ratio 9.2 L (10-20) Glucose 88 (70-99) mg/dl Lactate (0.4-2.0) mmol/L Calcium 8.5 (8.5-10.1) mg/dl Total Bilirubin 0.5 (0.2-1) mg/dl AST 20 (15-37) U/L ALT 13 (12-78) U/L Alkaline Phosphatase 87 (45-117) U/L Total Protein 6.6 (6.4-8.2) gm/dl Albumin 2.6 L (3.4-5.0) gm/dl Globulin 4.0 (2.5-4.0) gm/dl Albumin/Globulin Ratio 0.7 L (0.9-2) Amylase (25-115) U/L Lipase (73-393) U/L Urine Color Urine Appearance (Clear) Urine pH (4.5-7.5) Ur Specific [place] (1.000-1.030) Urine Protein (Negative) Urine Glucose (UA) (Negative) Urine Ketones (Negative) Urine Blood (Negative) Urine Nitrite (Negative) Urine Bilirubin (Negative) Urine Urobilinogen (Negative) Ur Leukocyte Esterase (Negative) Urine Opiates Screen (Neg) Ur Methadone, Qual (Neg) Urine Barbiturates (Neg) Ur Phencyclidine (PCP) (Neg) U Amphetamin/Meth Scrn (Neg) MDMA (Ecstasy) Screen (Neg) U Benzodiazepines Scrn (Neg) Ur Cocaine Metabolite (Neg) U Marijuana (THC) Screen (Neg) U Marijuana THC Carboxy Drug Screen Comment COVID-19 Eval Order SARS-CoV-2, RNA, NAAT NEGATIVE (NEGATIVE) 03/29/21 03/29/21 03/29/21 Range/Units 23:55 23:40 23:40 WBC (4.8-10.8) K/uL RBC (4.2-5.4) M/uL Hgb (12.0-16.0) g/dL Hct (37-47) % MCV (80-100) fL MCH (25-34) pg MCHC (32-36) g/dL RDW Std Deviation (36.4-46.3) fL RDW Coeff of Reji (11.5-14.5) % Plt Count (130-400) K/uL MPV (7.4-10.4) fL Immature Gran % (Auto) % Neut % (Auto) % Lymph % (Auto) % [place] % (Auto) % Eos % (Auto) % Baso % (Auto) % Neut # (Auto) (1.4-6.5) K/uL Lymph # (Auto) (1.2-3.4) K/uL [place] # (Auto) (0.11-0.59) K/uL Eos # (Auto) (0-0.5) K/uL Baso # (Auto) (0-0.2) K/uL Immature Gran # (Auto) (0.00-0.02) K/uL Sodium (136-145) mmol/L Potassium (3.5-5.1) mmol/L Chloride (98-107) mmol/L Carbon Dioxide (21-32) mmol/L Anion Gap (3-11) BUN (7-18) mg/dl Creatinine (0.6-1.2) mg/dl Est Cr Clr Drug Dosing ml/min Est GFR ( Amer) ml/min Est GFR (Non-Af Amer) ml/min BUN/Creatinine Ratio (10-20) Glucose (70-99) mg/dl Lactate (0.4-2.0) mmol/L Calcium (8.5-10.1) mg/dl Total Bilirubin (0.2-1) mg/dl AST (15-37) U/L ALT (12-78) U/L Alkaline Phosphatase (45-117) U/L Total Protein (6.4-8.2) gm/dl Albumin (3.4-5.0) gm/dl Globulin (2.5-4.0) gm/dl Albumin/Globulin Ratio (0.9-2) Amylase (25-115) U/L Lipase (73-393) U/L Urine Color Urine Appearance (Clear) Urine pH (4.5-7.5) Ur Specific [place] (1.000-1.030) Urine Protein (Negative) Urine Glucose (UA) (Negative) Urine Ketones (Negative) Urine Blood (Negative) Urine Nitrite (Negative) Urine Bilirubin (Negative) Urine Urobilinogen (Negative) Ur Leukocyte Esterase (Negative) Urine Opiates Screen Neg (Neg) Ur Methadone, Qual Neg (Neg) Urine Barbiturates Neg (Neg) Ur Phencyclidine (PCP) Neg (Neg) U Amphetamin/Meth Scrn Neg (Neg) MDMA (Ecstasy) Screen Neg (Neg) U Benzodiazepines Scrn Neg (Neg) Ur Cocaine Metabolite Neg (Neg) U Marijuana (THC) Screen Pos H (Neg) U Marijuana THC Carboxy Pending Drug Screen Comment Pending COVID-19 Eval Order Covid19 [facility] SARS-CoV-2, RNA, NAAT (NEGATIVE) 03/29/21 03/29/21 03/29/21 Range/Units 23:40 23:00 21:35 WBC 23.99 H (4.8-10.8) K/uL RBC 4.01 L (4.2-5.4) M/uL Hgb 11.5 L (12.0-16.0) g/dL Hct 33.5 L (37-47) % MCV 83.5 (80-100) fL MCH 28.7 (25-34) pg MCHC 34.3 (32-36) g/dL RDW Std Deviation 43.0 (36.4-46.3) fL RDW Coeff of Reji 14.1 (11.5-14.5) % Plt Count 297 (130-400) K/uL MPV 10.5 H (7.4-10.4) fL Immature Gran % (Auto) 0.6 % Neut % (Auto) 90.9 % Lymph % (Auto) 5.0 % [place] % (Auto) 3.5 % Eos % (Auto) 0.0 % Baso % (Auto) 0.0 % Neut # (Auto) 21.76 H (1.4-6.5) K/uL Lymph # (Auto) 1.21 (1.2-3.4) K/uL [place] # (Auto) 0.85 H (0.11-0.59) K/uL Eos # (Auto) 0.01 (0-0.5) K/uL Baso # (Auto) 0.01 (0-0.2) K/uL Immature Gran # (Auto) 0.15 H (0.00-0.02) K/uL Sodium (136-145) mmol/L Potassium (3.5-5.1) mmol/L Chloride (98-107) mmol/L Carbon Dioxide (21-32) mmol/L Anion Gap (3-11) BUN (7-18) mg/dl Creatinine (0.6-1.2) mg/dl Est Cr Clr Drug Dosing ml/min Est GFR ( Amer) ml/min Est GFR (Non-Af Amer) ml/min BUN/Creatinine Ratio (10-20) Glucose (70-99) mg/dl Lactate 1.3 (0.4-2.0) mmol/L Calcium (8.5-10.1) mg/dl Total Bilirubin (0.2-1) mg/dl AST (15-37) U/L ALT (12-78) U/L Alkaline Phosphatase (45-117) U/L Total Protein (6.4-8.2) gm/dl Albumin (3.4-5.0) gm/dl Globulin (2.5-4.0) gm/dl Albumin/Globulin Ratio (0.9-2) Amylase (25-115) U/L Lipase (73-393) U/L Urine Color Yellow Urine Appearance Clear (Clear) Urine pH 5.5 (4.5-7.5) Ur Specific [place] 1.011 (1.000-1.030) Urine Protein Negative (Negative) Urine Glucose (UA) Negative (Negative) Urine Ketones 4+ H (Negative) Urine Blood Negative (Negative) Urine Nitrite Negative (Negative) Urine Bilirubin Negative (Negative) Urine Urobilinogen Negative (Negative) Ur Leukocyte Esterase Negative (Negative) Urine Opiates Screen (Neg) Ur Methadone, Qual (Neg) Urine Barbiturates (Neg) Ur Phencyclidine (PCP) (Neg) U Amphetamin/Meth Scrn (Neg) MDMA (Ecstasy) Screen (Neg) U Benzodiazepines Scrn (Neg) Ur Cocaine Metabolite (Neg) U Marijuana (THC) Screen (Neg) U Marijuana THC Carboxy Drug Screen Comment COVID-19 Eval Order SARS-CoV-2, RNA, NAAT (NEGATIVE) 03/29/21 Range/Units 21:35 WBC (4.8-10.8) K/uL RBC (4.2-5.4) M/uL Hgb (12.0-16.0) g/dL Hct (37-47) % MCV (80-100) fL MCH (25-34) pg MCHC (32-36) g/dL RDW Std Deviation (36.4-46.3) fL RDW Coeff of Reji (11.5-14.5) % Plt Count (130-400) K/uL MPV (7.4-10.4) fL Immature Gran % (Auto) % Neut % (Auto) % Lymph % (Auto) % [place] % (Auto) % Eos % (Auto) % Baso % (Auto) % Neut # (Auto) (1.4-6.5) K/uL Lymph # (Auto) (1.2-3.4) K/uL [place] # (Auto) (0.11-0.59) K/uL Eos # (Auto) (0-0.5) K/uL Baso # (Auto) (0-0.2) K/uL Immature Gran # (Auto) (0.00-0.02) K/uL Sodium 137 (136-145) mmol/L Potassium 3.3 L (3.5-5.1) mmol/L Chloride 107 (98-107) mmol/L Carbon Dioxide 17 L (21-32) mmol/L Anion Gap 13.0 H (3-11) BUN 7 (7-18) mg/dl Creatinine 0.47 L (0.6-1.2) mg/dl Est Cr Clr Drug Dosing 176.5 ml/min Est GFR ( Amer) > 150.0 ml/min Est GFR (Non-Af Amer) 136.3 ml/min BUN/Creatinine Ratio 14.4 (10-20) Glucose 107 H (70-99) mg/dl Lactate (0.4-2.0) mmol/L Calcium 9.4 (8.5-10.1) mg/dl Total Bilirubin 0.7 (0.2-1) mg/dl AST 21 (15-37) U/L ALT 12 (12-78) U/L Alkaline Phosphatase 97 (45-117) U/L Total Protein 7.1 (6.4-8.2) gm/dl Albumin 2.9 L (3.4-5.0) gm/dl Globulin 4.2 H (2.5-4.0) gm/dl Albumin/Globulin Ratio 0.7 L (0.9-2) Amylase 37 (25-115) U/L Lipase 132 (73-393) U/L Urine Color Urine Appearance (Clear) Urine pH (4.5-7.5) Ur Specific [place] (1.000-1.030) Urine Protein (Negative) Urine Glucose (UA) (Negative) Urine Ketones (Negative) Urine Blood (Negative) Urine Nitrite (Negative) Urine Bilirubin (Negative) Urine Urobilinogen (Negative) Ur Leukocyte Esterase (Negative) Urine Opiates Screen (Neg) Ur Methadone, Qual (Neg) Urine Barbiturates (Neg) Ur Phencyclidine (PCP) (Neg) U Amphetamin/Meth Scrn (Neg) MDMA (Ecstasy) Screen (Neg) U Benzodiazepines Scrn (Neg) Ur Cocaine Metabolite (Neg) U Marijuana (THC) Screen (Neg) U Marijuana THC Carboxy Drug Screen Comment COVID-19 Eval Order SARS-CoV-2, RNA, NAAT (NEGATIVE)
--- NOTE | 2021-03-30 10:54 | Progress Note ---
Date of Service March 30, 2021 Assessment & Plan (1) Cannabis hyperemesis syndrome concurrent with and due to cannabis depend ence: 25-year-old G1, P0 at 30 weeks and 5 days of gestation presenting with another episodes of nausea vomiting, abdominal pain/periumbilical pain, history of marijuana use, cannabis hyper emesis syndrome Vital signs stable afebrile by oral temperature but increased skin temperature on face heart rate reassuring, no signs of symptoms of labor Elevated white blood cell count Plan to observe, monitor, IV fluids, IV antiemetics, IV potassium and repeat labs in a.m. Consult hospitalist (2) Marijuana use: (3) Hypokalemia: (4) Nausea and vomiting during : (5) Elevated WBC count: Admission and Anticipated Discharge Date Admission Date: March 29, 2021 Subjective feeling better with no vomiting today or any further nausea consults noted from medicine and GI Physical Exam Constitutional: WD/WN, vitals as above comfortable Genitourinary: OB Exam Monitor Tracing: + external FHT monitor used, + external uterine monitor used, + category I and + normal FHT variability will discharge home and follow up in clinic Results & Data ([facility]) Vital Signs (Past 12 Hours) Vital Signs Temp Pulse Resp BP 03/30/21 07:23 89 124/84 03/30/21 07:19 36.8 C 83 16 115/75 03/30/21 02:31 37.4 C 18 03/30/21 02:29 95 H 121/56 L
[2021-04-01 07:07] LABS: Marijuana Quant, GCMS Urine 537 ng/mL (<5)
--- NOTE | 2021-04-19 13:58 | Discharge Summary (DS) ---
DATE OF DISCHARGE: 03/30/2021. HOSPITAL COURSE AND PROGRESS NOTE: The patient is a 25-year-old female who was admitted for cannabis hyperemesis syndrome. She is 30 weeks and 5 days. She was given IV fluids. Consult was obtained [facility] GI and medicine. The patient subsequently stabilized and she signed out AMA. The patient was told to follow up with the office for followup including followup with GI and medicine. No further interv ention was done. Job ID: [id number]
== END 2021-03-30 10:56 | disposition home or self-care (01) ==
LOC: OPB 20:48 → 4S1 20:48

== ENCOUNTER 2021-03-31 03:46 | Inpatient (IN) ==
[2021-03-31] MEDS ORDERED: diphenhydrAMINE 50 MG/ML VIAL IV STA (04:09)
[2021-03-31] MEDS ORDERED: SODIUM CHLORIDE 0.9% 1000ML 1,000 ML IV ONE (04:09)
[2021-03-31] MEDS ORDERED: ONDANSETRON INJ 2 MG/ML 2 ML VIAL IV STA ×3 (04:09→08:38)
--- NOTE | 2021-03-31 04:26 | Emergency Department Note ---
Impression & Plan Cannabis hyperemesis syndrome concurrent with and due to cannabis dependence, Third trimester ED Provider Note NAME: ISAURA JOSEPH AGE: 25 SEX: F ARRIVES VIA: Walk-In INFORMANT: Patient ED PROVIDER(S): Mary Molina DO CHIEF COMPLAINT: Vomiting PLAN: Disposition: Admit to ob-Dr. Hunt Condition: Fair MEDICAL DECISION MAKING: This is a 25-year-old female patient who is in her third trimester of and suffered from cannabis hyperemesis syndrome. The patient has been seen here in the emergency department throughout her multiple times for this. She explains that she has been doing better over the past couple of weeks but had to be admitted yesterday to labor and delivery. Patient presents here this morning with persistent nausea, retching and epigastric pain. Patient states that the Zofran is not working at home. She last used marijuana a couple of days ago. The patient is unable to stop vomiting and dry heaving. Triage Nursing notes reviewed and agree with them. Prior medical records reviewed Vital Signs: reviewed and unremarkable Differential diagnosis: Hyperemesis gravidarum; dehydration; cannabis hyperemesis syndrome; leukocytosis ER treatment provided: IV normal saline bolus IV Zofran IV Benadryl IV Reglan Diagnostics interpreted by me: Cardiac monitoring: Normal sinus rhythm at a rate of 98 Laboratory studies: See below HPI: 25/F arrives for evaluation of nausea/vomiting and epigastric pain. This is a 25-year-old female patient who is in her third trimester of and suffered from cannabis hyperemesis syndrome. The patient has been seen here in the emergency department throughout her multiple times for this. She explains that she has been doing better over the past couple of weeks but had to be admitted yesterday to labor and delivery. Patient presents here this morning with persistent nausea, retching and epigastric pain. Patient states that the Zofran is not working at home. She last used marijuana a couple of days ago. ROS: See above HPI for pertinent positives & negatives. A total of 10 systems reviewed and were otherwise negative. PAST MEDICAL HISTORY:See Below PAST SURGICAL HISTORY:See Below FAMILY HISTORY:See Below SOCIAL HISTORY:See Below HOME MEDICATIONS:See list ALLERGIES:None VITALS:See Below PHYSICAL EXAMINATION: HEENT: Head - normocephalic and atraumatic Pupils are equal, round, and reactive to light. Extraocular eye muscles are intact, and sclera are anicteric. Nose - moist nasal mucosa without discharge. Mouth - moist buccal mucosa. Oropharynx is nonerythematous and there is no tonsillar exudate or edema noted. Neck: Supple; no cervical lymphadenopathy or thyromegaly Heart: Tachycardic rate and rhythm. There is a normal S1 and S2 with no murmurs, clicks, or gallops appreciated. Lungs: Clear to auscultation bilaterally with no wheezes, rales, or rhonchi. Abdomen: Soft, gravid with some mild discomfort to palpation in the epigastrium. Normal bowel sounds. There are no palpable pulsatile masses or hepatosplenomegaly. There is no guarding, rigidity, or rebound noted. Extremities: No evidence of cyanosis, clubbing, or edema. There are easily palpable peripheral pulses. Skin: Pale, diaphoretic, warmwith good turgor and no rashes. ED COURSE: Times/Reassessments: 0400: The patient was evaluated in room 11. A complete history and physical was performed. Previous electronic medical records were reviewed including the records from labor and delivery from yesterday.. An IV lock was initiated and labs were drawn as above. An order was placed continuous cardiac monitoring. Patient was in a normal sinus rhythm at a rate of 98. She was given a liter of normal saline solution along with 4 mg of IV Zofran and 25 mg of IV Benadryl. 0455: I reevaluated the patient at this time and she was slightly more comfortable but still complained of nausea. She stated that she had just recently vomited. She will be given a dose of IV Reglan. The patient was reevaluated multiple times throughout her stay here in the [facility] department. She received additional doses of IV Zofran and Reglan but continued to vomit here in the emergency department. I had a lengthy conversation with the patient about being discharged to home versus admission to the hospital. She was hopeful to make it to her maternal- appointment in [place] for evaluation for IUGR but could not stop retching/vomiting. I discussed the case with Dr. Hunt from [facility] and he will evaluate the patient here in the emergency department. Mary Molina, Past Med/Surg History Medical History Anxiety Cannabis hyperemesis syndrome concurrent with and due to cannabis dependence Depression GERD (gastroesophageal reflux disease) As a child History of hepatitis C Received Harvoni in 2017; Pt has had negative HCV loads since Hyperemesis affecting , antepartum Marijuana use Surgical History History of cholecystectomy History of esophagogastroduodenoscopy (EGD) Family History Other No significant family history Social History Smoking Status: Former smoker Tobacco Type: Cigarettes Second Hand Exposure: No; Hx Alcohol Use: No Hx Substance Use: Yes Last Used Substance: Hours (ago) Last Used Substance Other:: marijuana Sunday and heroin 6 yrs ago Substance Use Type Other:: 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 Preferred Language: Faroese Communication Ability: pt sleepy Tow Motor Operator Required: No Beliefs That Will Affect Care: None marital status: Single Current Living Situation: Significant Other current occupational status: employed and student Other Information That Helps Us Care for You: No Feels Safe at Home: Yes Assistive Devices: None Allergies Allergies Allergy/AdvReac Type Severity Reaction Status Date / Time No Known Allergies Allergy Verified 03/31/21 07:19 Home Meds Home Medications Medication Instructions Recorded Confirmed prenat.vits,kannan,dsf-bpkx-sysyt 1 tab PO DAILY 11/06/20 03/31/21 omeprazole 20 mg PO QAM 12/18/20 03/31/21 ondansetron 4 mg PO Q4H PRN 12/18/20 03/31/21 dextroamphetamine-amphetamine 20 mg PO DAILY 03/27/21 03/31/21 fluoxetine [Prozac] 60 mg PO DAILY 03/27/21 03/31/21 iron,iron asp gly-FA-mv,min38 125 tab PO DAILY 03/27/21 03/31/21 Previous Rx's Medication Instructions Recorded ondansetron HCl [Zofran] 4 mg PO Q4 PRN 5 Days #30 tab 03/31/21 Results & Data (ED) Vital Signs Vital Signs - 24 hr 03/31/21 03:51 03/31/21 04:19 03/31/21 05:00 Temperature 36.3 C L Temperature Source Temporal Artery Scan Pulse Rate 79 84 99 H Pulse Rate [Apical] Pulse Rhythm [Apical] Pulse Strength [Apical] Respiratory Rate 22 20 21 Respiratory Effort / Characteristics Respiratory Depth Shallow Blood Pressure 122/80 Blood Pressure [Right Arm] Blood Pressure Mean 94 Blood Pressure Mean [Right Arm] Pulse Oximetry 97 Oxygen Delivery Method Room Air Sepsis Recent Fever Within 48 Hours No Sepsis New/Unexplained Change in Mental Status No Sepsis Action Taken by Nursing No Action Required 03/31/21 05:03 03/31/21 05:54 Temperature 37.0 C Temperature Source Oral Pulse Rate Pulse Rate [Apical] 78 Pulse Rhythm [Apical] Regular Pulse Strength [Apical] Normal Respiratory Rate 16 Respiratory Effort / Characteristics Non-Labored Respiratory Depth Normal Blood Pressure Blood Pressure [Right Arm] 106/66 Blood Pressure Mean Blood Pressure Mean [Right Arm] 79 Pulse Oximetry 99 100 Oxygen Delivery Method Room Air Sepsis Recent Fever Within 48 Hours Sepsis New/Unexplained Change in Mental Status Sepsis Action Taken by Nursing Laboratory Data Result diagrams: 03/31/21 04:38 03/31/21 04:38 Lab Results 03/31/21 03/31/21 03/31/21 Range/Units 04:38 04:38 05:13 WBC 19.88 H (4.8-10.8) K/uL RBC 3.70 L (4.2-5.4) M/uL Hgb 10.6 L (12.0-16.0) g/dL Hct 31.8 L (37-47) % MCV 85.9 (80-100) fL MCH 28.6 (25-34) pg MCHC 33.3 (32-36) g/dL RDW Std Deviation 44.6 (36.4-46.3) fL RDW Coeff of Reji 14.5 (11.5-14.5) % Plt Count 248 (130-400) K/uL MPV 10.4 (7.4-10.4) fL Immature Gran % (Auto) 0.8 % Neut % (Auto) 80.5 % Lymph % (Auto) 12.3 % [place] % (Auto) 6.0 % Eos % (Auto) 0.2 % Baso % (Auto) 0.2 % Neut # (Auto) 16.00 H (1.4-6.5) K/uL Lymph # (Auto) 2.45 (1.2-3.4) K/uL [place] # (Auto) 1.20 H (0.11-0.59) K/uL Eos # (Auto) 0.03 (0-0.5) K/uL Baso # (Auto) 0.04 (0-0.2) K/uL Immature Gran # (Auto) 0.16 H (0.00-0.02) K/uL Sodium 142 (136-145) mmol/L Potassium 3.2 L (3.5-5.1) mmol/L Chloride 112 H (98-107) mmol/L Carbon Dioxide 19 L (21-32) mmol/L Anion Gap 11.0 (3-11) BUN 4 L (7-18) mg/dl Creatinine 0.42 L (0.6-1.2) mg/dl Est Cr Clr Drug Dosing 200.1 ml/min Est GFR ( Amer) > 150.0 ml/min Est GFR (Non-Af Amer) 141.5 ml/min BUN/Creatinine Ratio 9.5 L (10-20) Glucose 93 (70-99) mg/dl Calcium 8.4 L (8.5-10.1) mg/dl Total Bilirubin 0.5 (0.2-1) mg/dl AST 16 (15-37) U/L ALT 13 (12-78) U/L Alkaline Phosphatase 84 (45-117) U/L Total Protein 6.5 (6.4-8.2) gm/dl Albumin 2.7 L (3.4-5.0) gm/dl Globulin 3.8 (2.5-4.0) gm/dl Albumin/Globulin Ratio 0.7 L (0.9-2) Lipase 357 (73-393) U/L Urine Color Yellow Urine Appearance Clear (Clear) Urine pH 7.0 (4.5-7.5) Ur Specific [place] 1.015 (1.000-1.030) Urine Protein Negative (Negative) Urine Glucose (UA) Negative (Negative) Urine Ketones 3+ H (Negative) Urine Blood Negative (Negative) Urine Nitrite Negative (Negative) Urine Bilirubin Negative (Negative) Urine Urobilinogen Negative (Negative) Ur Leukocyte Esterase Negative (Negative) Administered Medications Discontinued Medications Diphenhydramine HCl (Diphenhydramine 50 Mg/Ml Vial) 25 mg IV NOW STA Stop: 03/31/21 04:10 Last Admin: 03/31/21 04:36 Dose: 25 mg Documented by: [id number] Sodium Chloride (Nss 1000ml) 1,000 mls @ 999 mls/hr IV .Q1H1M ONE Stop: 03/31/21 05:09 Last Infusion: 03/31/21 05:56 Dose: 0 mls/hr Documented by: [id number] Admin: 03/31/21 04:36 Dose: 999 mls/hr Documented by: [id number] Lactated Ringer's (Lr) 1,000 mls @ 500 mls/hr IV .Q2H PRN; Protocol PRN Reason: L&D Protocol Stop: 04/02/21 08:37 Last Infusion: 03/31/21 10:59 Dose: 0 mls/hr Documented by: [id number] Infusion: 03/31/21 10:55 Dose: 0 mls/hr Documented by: [id number] Admin: 03/31/21 09:00 Dose: 500 mls/hr Documented by: [id number] Dextrose/Lactated Ringer's (D5w And Lactated Ringers) 1,000 mls @ 125 mls/hr IV .Q8H DAYANARA Stop: 04/30/21 09:14 Last Infusion: 03/31/21 14:26 Dose: 125 mls/hr Documented by: [id number] Infusion: 03/31/21 11:00 Dose: 0 mls/hr Documented by: [id number] Admin: 03/31/21 11:00 Dose: 125 mls/hr Documented by: [id number] Potassium Chloride (K Gera / Wtr) 10 meq in 100 mls @ 100 mls/hr IV Q1H DAYANARA Stop: 03/31/21 12:29 Last Infusion: 03/31/21 14:26 Dose: 0 mls/hr Documented by: [id number] Admin: 03/31/21 13:21 Dose: 100 mls/hr Documented by: [id number] Infusion: 03/31/21 13:15 Dose: 100 mls/hr Documented by: [id number] Admin: 03/31/21 12:15 Dose: 100 mls/hr Documented by: [id number] Infusion: 03/31/21 11:55 Dose: 0 mls/hr Documented by: [id number] Admin: 03/31/21 10:55 Dose: 100 mls/hr Documented by: [id number] Metoclopramide HCl (Metoclopramide Hcl Inj 5 Mg/Ml 2 Ml Vial) 5 mg IV ONE ONE Stop: 03/31/21 04:56 Last Admin: 03/31/21 05:10 Dose: 5 mg Documented by: [id number] Metoclopramide HCl (Metoclopramide Hcl Inj 5 Mg/Ml 2 Ml Vial) 5 mg IV ONE ONE Stop: 03/31/21 06:35 Last Admin: 03/31/21 06:40 Dose: 5 mg Documented by: [id number] Metoclopramide HCl (Metoclopramide Hcl Inj 5 Mg/Ml 2 Ml Vial) 10 mg IV Q6H PRN PRN Reason: Nausea Stop: 04/30/21 06:50 Last Admin: 03/31/21 17:44 Dose: 10 mg Documented by: [id number] Ondansetron HCl (Ondansetron Inj 2 Mg/Ml 2 Ml Vial) 4 mg IV NOW STA Stop: 03/31/21 04:10 Last Admin: 03/31/21 04:35 Dose: 4 mg Documented by: [id number] Ondansetron HCl (Ondansetron Inj 2 Mg/Ml 2 Ml Vial) 4 mg IV NOW STA Stop: 03/31/21 06:02 Last Admin: 03/31/21 06:08 Dose: 4 mg Documented by: [id number] Ondansetron HCl (Ondansetron Inj 2 Mg/Ml 2 Ml Vial) 4 mg IV Q4R STA Stop: 03/31/21 08:39 Last Admin: 03/31/21 10:04 Dose: Not Given Documented by: [id number] Ondansetron HCl (Ondansetron Inj 2 Mg/Ml 2 Ml Vial) 4 mg IV Q6H PRN PRN Reason: Nausea And Vomiting Stop: 04/30/21 09:08 Last Admin: 03/31/21 15:30 Dose: 4 mg Documented by: [id number] Admin: 03/31/21 10:09 Dose: 4 mg Documented by: [id number] Ondansetron HCl (Ondansetron Home Pack 4mg Od Tab) 1 homepack PO NOW ONE Stop: 03/31/21 21:05 Last Admin: 03/31/21 21:43 Dose: 1 homepack Documented by: [id number] Discharge Plan Visit Data Chief Complaint: Vomiting Stated Complaint: VOMITING, 31 WKS ED Provider: Botti,Mary A Discharge Problem: Cannabis hyperemesis syndrome concurrent with and due to cannabis dependence, Third trimester Patient Disposition: Admitted As Inpatient Discharge Instructions Interventions: ED Discharge Assessment Last Done: 03/31/21 08:23
[2021-03-31 04:47] LABS: Basophils # (auto) 0.04 K/uL (0-0.2); Basophils % (auto) 0.2 %; Eosinophils # (auto) 0.03 K/uL (0-0.5); Eosinophils % (auto) 0.2 %; Hematocrit (blood only) 31.8 % (37-47); Hemoglobin 10.6 g/dL (12.0-16.0); Immature Granulocytes # (auto) 0.16 K/uL (0.00-0.02); Immature Granulocytes % (auto) 0.8 %; Lymphocytes # (auto) 2.45 K/uL (1.2-3.4); Lymphocytes % (auto) 12.3 %; Mean Corpuscular Hemoglobin 28.6 pg (25-34); Mean Corpuscular Hgb Conc 33.3 g/dL (32-36); Mean Corpuscular Volume 85.9 fL (80-100); Mean Platelet Volume 10.4 fL (7.4-10.4); Neutrophils % (auto) 80.5 %; Platelet Count 248 K/uL (130-400); RDW Coefficient of Variation 14.5 % (11.5-14.5); RDW Standard Deviation 44.6 fL (36.4-46.3); White Blood Count 19.88 K/uL (4.8-10.8)
[2021-03-31] MEDS ORDERED: METOCLOPRAMIDE HCL INJ 5 MG/ML 2 ML VIAL IV ONE ×2 (04:55→06:34)
[2021-03-31 05:05] LABS: Alanine Aminotransferase 13 U/L (12-78); Albumin Level 2.7 gm/dl (3.4-5.0); Aspartate Aminotransferase 16 U/L (15-37); BUN Creatinine Ratio 9.5 (10-20); Blood Urea Nitrogen 4 mg/dl (7-18); Calcium 8.4 mg/dl (8.5-10.1); Carbon Dioxide 19 mmol/L (21-32); Chloride 112 mmol/L (98-107); Creatinine Clr Calc Pharmacy 200.1 ml/min; Est GFR (African American) > 150.0 ml/min; Est GFR (Non-African American) 141.5 ml/min; Glucose 93 mg/dl (70-99); Lipase 357 U/L (73-393); Potassium 3.2 mmol/L (3.5-5.1); Sodium 142 mmol/L (136-145)
[2021-03-31 05:20] LABS: Appearance Urine Clear (Clear); Bilirubin Urine Negative (Negative); Blood Urine Negative (Negative); Color Urine Yellow; Glucose Urine UA Negative (Negative); Ketones Urine 3+ (Negative); Leukocyte Esterase Urine Negative (Negative); Nitrite Urine Negative (Negative); Protein Urine Negative (Negative); Specific Gravity Urine 1.015 (1.000-1.030); Urobilinogen Urine Negative (Negative)
[2021-03-31 05:23] LABS: Albumin Globulin Ratio 0.7 (0.9-2); Alkaline Phosphatase 84 U/L (45-117); Bilirubin,Total 0.5 mg/dl (0.2-1); Globulin 3.8 gm/dl (2.5-4.0); Total Protein 6.5 gm/dl (6.4-8.2)
[2021-03-31] MEDS ORDERED: METOCLOPRAMIDE HCL INJ 5 MG/ML 2 ML VIAL IV PRN (06:51)
--- NOTE | 2021-03-31 06:59 | History & Physical Report ---
Date of Service March 31, 2021 Assessment & Plan (1) Cannabis hyperemesis syndrome concurrent with and due to cannabis depende nce: (2) Third trimester : (3) Nausea and vomiting during : (4) Cannabis hyperemesis syndrome concurrent with and due to cannabis dependence: (5) Marijuana use: History of Present Illness Primary Care Provider: Bo Yo MD 25 F at 30 weeks here for recurrent nausea and vomiting due to cannabis hyperemesis syndrome. She was recently admitted for this and just discharged yesterday. Allergies Allergy/AdvReac Type Severity Reaction Status Date / Time No Known Allergies Allergy Verified 03/27/21 21:10 Home Medications Medication Instructions Recorded Confirmed Type prenat.vits,kannan,eqn-mkci-wjjqs 1 tab PO DAILY 11/06/20 03/29/21 History omeprazole 20 mg PO QAM 12/18/20 03/29/21 History ondansetron 4 mg PO Q4H PRN 12/18/20 03/29/21 History dextroamphetamine-amphetamine 20 mg PO DAILY 03/27/21 03/29/21 History fluoxetine [Prozac] 60 mg PO DAILY 03/27/21 03/29/21 History iron,iron asp gly-FA-mv,min38 125 tab PO DAILY 03/27/21 03/29/21 History Patient History Medical History Anxiety Cannabis hyperemesis syndrome concurrent with and due to cannabis dependence Depression GERD (gastroesophageal reflux disease) As a child History of hepatitis C Received Theresa in 2017; Pt has had negative HCV loads since Hyperemesis affecting , antepartum Marijuana use Surgical History History of cholecystectomy History of esophagogastroduodenoscopy (EGD) Family History Other No significant family history Social History Smoking Status: Former smoker Tobacco Type: Cigarettes Second Hand Exposure: No; Hx Alcohol Use: No Hx Substance Use: Yes Last Used Substance: Hours (ago) Last Used Substance Other:: Currently using medical marijuana last used today Substance Use Type Other:: 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 Preferred Language: Moldovan Communication Ability: Effective Shoe Stitcher Odd Required: No Beliefs That Will Affect Care: None marital status: Single Current Living Situation: Significant Other current occupational status: employed and student Feels Safe at Home: Yes Assistive Devices: None Physical Exam Constitutional: WD/WN, vitals as above + acute distress Respiratory: normal respiratory effort, lungs clear to auscultation Cardiovascular: RRR, no murmur, no edema Rate/Rhythm: regular rate Gastrointestinal (Abdomen): normal bowel sounds, soft, nontender, no hepatosplenomegaly Inspection/Auscultation: abdomen normal to inspection Skin: no rashes, warm and dry Neurologic: patellar DTR's 2+ bilat, sensation intact normal touch/pain/proprioception Psychiatric: A+Ox3, euthymic affect Orientation: alert Results & Data ([facility]) Vital Signs (Past 12 Hours) Vital Signs Temp Pulse Pulse Resp BP BP Pulse Ox 03/31/21 05:54 37.0 C 78 16 106/66 100 03/31/21 05:03 99 03/31/21 05:00 99 H 21 03/31/21 04:19 84 20 03/31/21 03:51 36.3 C L 79 22 122/80 97 Monitoring External Monitor Will place on monitor on L&D
[2021-03-31] MEDS ORDERED: LACTATED RINGER'S 1,000 ML IV PRN (08:38)
[2021-03-31] MEDS ORDERED: LACTATED RINGER'S 1,000 ML IV SCH (09:15)
[2021-03-31] MEDS ORDERED: D5W AND LACTATED RINGERS 1,000 ML IV SCH (09:15)
[2021-03-31] MEDS: ONDANSETRON INJ 2 MG/ML 2 ML VIAL IV PRN ×2 (10:09→15:30)
[2021-03-31] MEDS: POTASSIUM CHLORIDE / WTR 10 MEQ/100 ML PLCT IV SCH ×3 (10:55→13:21)
--- NOTE | 2021-03-31 14:53 | Obstetrical Progress Note ---
Date of Service March 31, 2021 Assessment & Plan Admission and Anticipated Discharge Date Admission Date: March 31, 2021 Subjective Patient is in hallway, walking he was seen by BETI WOLF yesterday and was discharged before GI Attending doctor came over to see her Thye recommended RUQ US if this would recurr I spoke with BETI and they weill come and see her I placed the order for US Will do NST for monitoring Results & Data ([facility]) Vital Signs (Past 12 Hours) Vital Signs Temp Pulse Pulse Pulse Resp BP BP 03/31/21 11:43 36.2 C L 84 16 136/82 03/31/21 09:02 36.7 C 77 20 129/79 03/31/21 08:40 36.7 C 77 18 129/79 03/31/21 08:09 79 16 108/71 03/31/21 05:54 37.0 C 78 16 106/66 03/31/21 05:03 03/31/21 05:00 99 H 21 03/31/21 04:19 84 20 03/31/21 03:51 36.3 C L 79 22 122/80 Pulse Ox 03/31/21 11:43 98 03/31/21 09:02 99 03/31/21 08:40 99 03/31/21 08:09 98 03/31/21 05:54 100 03/31/21 05:03 99 03/31/21 05:00 03/31/21 04:19 03/31/21 03:51 97
--- NOTE | 2021-03-31 16:44 | Ultrasound Report ---
ULTRASOUND RIGHT UPPER QUADRANT ABDOMEN CLINICAL HISTORY: Nausea and vomiting. COMPARISON STUDY: Abdominal CT dated 05/22/2015. TECHNIQUE: Real-time, grayscale, and color flow sonography of the right upper quadrant of the abdomen was performed. Images are reviewed in the transverse and longitudinal planes. FINDINGS: Liver: The liver is normal in size and echotexture. There is no intrahepatic biliary ductal dilatatio n. The main portal vein is patent. Gallbladder: The gallbladder is surgically absent. The common bile duct measures up to 0.5 cm in diam eter. Pancreas: Nonvisualized due to overlying bowel gas. Right kidney: Survey images of the right kidney demonstrate normal size and echotexture. There is no hydronephrosis. Ascites: None. IMPRESSION: No acute sonographic abnormality is seen in the right upper quadrant noting status post c holecystectomy ACT 112: Negative or not required by law. Electronically signed by: Chris Collins M.D. 03/31/2021 4:43 PM
[2021-03-31 17:49] LABS: Amphetamines+Metham, Urine Neg (Neg); Barbiturates, Urine Neg (Neg); Benzodiazepine, Urine Neg (Neg); Cocaine, Urine Neg (Neg); MDMA (Ecstacy), Urine Neg (Neg); Methadone, Urine Neg (Neg); Opiate, Urine Neg (Neg); Phencyclidine, Urine Neg (Neg)
--- NOTE | 2021-03-31 20:52 | Obstetrical Progress Note ---
Date of Service March 31, 2021 Assessment & Plan Admission and Anticipated Discharge Date Admission Date: March 31, 2021 Subjective Patient is seen She feels better and wants to go home. GI has not seen her yet I spoke with GI doorperson and were panning to see her in am Recommended IV or PO Zofran and quit Marijuana Recommended to stay overnight until she will be able to regular diet and see GI but patient still wants to go home She will sign AMA form to leave the hospital. Rx and home pack of Zofran Results & Data ([facility]) Vital Signs (Past 12 Hours) Vital Signs Temp Pulse Resp BP Pulse Ox 03/31/21 15:35 36.6 C 91 H 18 136/85 96 03/31/21 11:43 36.2 C L 84 16 136/82 98 03/31/21 09:02 36.7 C 77 20 129/79 99
[2021-03-31] MEDS ORDERED: ONDANSETRON HOME PACK 4MG OD TAB PO ONE (21:04)
[2021-04-02 16:23] LABS: Marijuana Quant, GCMS Urine 562 ng/mL (<5)
--- NOTE | 2021-04-06 11:23 | Discharge Summary (DS) ---
REASON FOR ADMISSION AND HOSPITAL COURSE: The patient is a 25-year-old female admitted for cannabis hyperemesis syndrome in the third trimester. She has been experiencing extreme nausea and vomiting during the entire . She presents to the Emergency Room. Despite hydration and medication in the ER, she was brought in due to recurring nausea and vomiting. Hospital course was unremarkable. The patient was subsequently stable. She felt better. GI consult was obtained. The patient was sent home with [place] and patient will be followed up in the office. Regular diet on discharge. Medications as described. Condition on discharge is stable. Follow up as needed.
== END 2021-03-31 21:51 | disposition left against medical advice (07) | DRG 832 ==
LOC: ED 03:46 → 4N 07:01